=== PATIENT | male | born 1955 | race Asian ===

== ENCOUNTER 2023-03-26 08:04 | Inpatient (IN) | payer OTHER ==
[~2023-03-26] VITALS: Ht 162.6 cm; Wt 46.9 kg
[2023-03-26 09:33] LABS: BASOPHILS # (AUTO) 0.1 K/uL (0.0-0.2); BASOPHILS % (AUTO) 0.5 % (0.0-2.0); EOSINOPHILS % (AUTO) 0.1 % (0.0-6.0); HEMATOCRIT 41 % (39-51); HEMOGLOBIN 13.3 g/dL (13.5-17.5); LYMPHOCYTES # (AUTO) 0.9 K/uL (0.8-4.8); LYMPHOCYTES % (AUTO) 4.6 % (20.0-44.0); MEAN CORPUSCULAR HEMOGLOBIN 28 PG (26.0-33.0); MEAN CORPUSCULAR HGB CONC 32 g/dl (31.0-36.0); MEAN CORPUSCULAR VOLUME 88 fL (80-96); MONOCYTES # (AUTO) 0.8 K/uL (0.1-1.30); MONOCYTES % (AUTO) 4.1 % (2.0-12.0); NEUTROPHILS # (AUTO) 16.9 K/uL (1.8-8.9); NEUTROPHILS % (AUTO) 90.7 % (43.0-81.0); PLATELET COUNT (AUTO) 163 K/uL (150-450); RED BLOOD CELL COUNT(AUTO) 4.73 MIL/uL (4.5-6.0); RED CELL DISTRIBUTION WIDTH 16.7 % (11.5-15.0); WHITE BLOOD COUNT (AUTO) 18.6 K/uL (4.3-11.0)
[2023-03-26 09:36] LABS: CALCIUM, SERUM 8.1 mg/dL (8.5-10.1); CREATININE 1.2 mg/dL (0.6-1.3); POTASSIUM 5.7 mmol/L (3.5-5.1)
[2023-03-26 09:55] LABS: ALBUMIN 3.2 g/dL (3.4-5.0); BILIRUBIN,DIRECT 0.2 mg/dL (0.0-0.2); BILIRUBIN,TOTAL 0.7 mg/dL (0.2-1.0); TOTAL PROTEIN, SERUM 6.7 g/dL (6.4-8.2)
[2023-03-26] MEDS ORDERED: IV NS 0.9% 1,000 ML BAG IV ONE (10:30)
[2023-03-26] MEDS ORDERED: PIPERACILLIN /TAZOBACTAM 3.375 G in IV D5W 50 ML IV ONE (10:30)
[2023-03-26] MEDS ORDERED: ONDANSETRON HCL/PF 4 MG/2 ML VIAL IVP ONE (10:30)
[2023-03-26] MEDS ORDERED: ONDANSETRON HCL/PF 4 MG/2 ML VIAL ONE (10:32)
[2023-03-26 10:42] LABS: APPEARANCE,URINE CLOUDY (CLEAR); BILIRUBIN,URINE 1+ (NEGATIVE); BLOOD, URINE 3+ Ery/uL (NEGATIVE); COLOR,URINE AMBER (YELLOW); KETONES,URINE 1+ mg/dL (NEGATIVE); LEUKOCYTE ESTERASE ,URINE NEGATIVE (NEGATIVE); NITRITE, URINE POSITIVE (NEGATIVE); PH,URINE 6.5 (5.0-8.0); PROTEIN,URINE 3+ mg/dl (NEGATIVE); UGLUCOSE 3+ mg/dL (NEGATIVE)
[2023-03-26 10:44] LABS: ADD URINE CULTURE YES; BACTERIA,URINE Moderate /HPF (None Seen); SQUAMOUS EPITHELIAL CELL,UR Rare /HPF (None Seen); WBC,URINE 21-50 /HPF (0-3)
[2023-03-26] MEDS ORDERED: ACETAMINOPHEN 325 MG TABLET PO PRN (16:00)
[2023-03-26] MEDS ORDERED: DEXTROSE 50%-WATER 50 ML DISP.SYRIN IV PRN (16:00)
[2023-03-26] MEDS: IV NS 0.9% 1,000 ML IV SCH (16:29)
[2023-03-26 16:30] VITALS: BP 108/60; TEMP 97.4; O2SAT 96
[2023-03-26] MEDS: LEVOFLOXACIN 500 MG /D5W 100ML 500 MG in PREMIX 1 EA IV SCH (16:35)
[2023-03-26] MEDS: HYDROCODONE/APAP 5/325MG TABLET PO PRN (16:45)
[2023-03-26 17:00] LABS: CALCIUM, SERUM 7.2 mg/dL (8.5-10.1); CREATININE 1.3 mg/dL (0.6-1.3); POTASSIUM 6.1 mmol/L (3.5-5.1)
[2023-03-26] MEDS ORDERED: PANTOPRAZOLE 40 MG VIAL IV SCH (17:00)
[2023-03-26] MEDS: BLOOD SUGAR DIAGNOSTIC 1 EACH STRIP VI SCH ×2 (17:38→23:28)
[2023-03-26] MEDS: INSULIN REGULAR, HUMAN 100 UNIT/ML 3 ML VIAL SQ PRN (17:41)
[2023-03-26] MEDS: METRONIDAZOLE 500MG/ NS 100ML 500 MG in PREMIX 1 EA IV SCH ×2 (17:51→23:29)
[2023-03-26 19:00] VITALS: BP 117/61; TEMP 98; O2SAT 97
[2023-03-26 20:00] VITALS: BP 117/61; TEMP 98; O2SAT 97
[2023-03-27] MEDS: IV NS 0.9% 1,000 ML IV SCH ×2 (02:00→07:24)
[2023-03-27] MEDS: *INSULIN REGULAR(HUMULIN R)HUM 100 UNIT/ML VIAL SQ PRN (06:03)
[2023-03-27 06:35] LABS: BASOPHILS # (AUTO) 0.2 K/uL (0.0-0.2); BASOPHILS % (AUTO) 1.3 % (0.0-2.0); HEMATOCRIT 44 % (39-51); HEMOGLOBIN 14.1 g/dL (13.5-17.5); LYMPHOCYTES # (AUTO) 0.4 K/uL (0.8-4.8); LYMPHOCYTES % (AUTO) 2.6 % (20.0-44.0); MEAN CORPUSCULAR HEMOGLOBIN 29 PG (26.0-33.0); MEAN CORPUSCULAR HGB CONC 32 g/dl (31.0-36.0); MEAN CORPUSCULAR VOLUME 89 fL (80-96); MONOCYTES % (AUTO) 5.7 % (2.0-12.0); NEUTROPHILS # (AUTO) 15.2 K/uL (1.8-8.9); NEUTROPHILS % (AUTO) 90.4 % (43.0-81.0); PLATELET COUNT (AUTO) 147 K/uL (150-450); RED BLOOD CELL COUNT(AUTO) 4.95 MIL/uL (4.5-6.0); RED CELL DISTRIBUTION WIDTH 16.7 % (11.5-15.0); WHITE BLOOD COUNT (AUTO) 16.8 K/uL (4.3-11.0)
[2023-03-27] MEDS: BLOOD SUGAR DIAGNOSTIC 1 EACH STRIP VI SCH ×4 (07:34→22:00)
[2023-03-27 08:00] VITALS: BP 136/69; TEMP 97.5; O2SAT 96
[2023-03-27] MEDS: METRONIDAZOLE 500MG/ NS 100ML 500 MG in PREMIX 1 EA IV SCH ×3 (08:07→23:35)
[2023-03-27 08:57] LABS: ALBUMIN 2.7 g/dL (3.4-5.0); BILIRUBIN,TOTAL 0.4 mg/dL (0.2-1.0); CALCIUM, SERUM 6.9 mg/dL (8.5-10.1); CREATININE 1.9 mg/dL (0.6-1.3); POTASSIUM 6.1 mmol/L (3.5-5.1); TOTAL PROTEIN, SERUM 6.5 g/dL (6.4-8.2)
[2023-03-27] MEDS: PANTOPRAZOLE 40 MG TABLET.DR PO SCH ×2 (09:40→17:12)
[2023-03-27 10:01] LABS: OCCULT BLOOD STOOL NEGATIVE (NEGATIVE)
[2023-03-27] MEDS ORDERED: SODIUM POLYSTYRENE SULFONATE 15 G/60 ML BOTTLE PO ONE ×2 (12:00→12:30)
[2023-03-27] MEDS: ENSURE CLEAR 237 ML LIQUID (MIX BERRY) PO SCH ×2 (12:09→17:11)
[2023-03-27] MEDS: INSULIN REGULAR, HUMAN 100 UNIT/ML 3 ML VIAL SQ PRN ×2 (13:32→17:55)
[2023-03-27] MEDS ORDERED: ONDA8TAB65 SL (13:41)
[2023-03-27] MEDS ORDERED: POTA-10 PO (13:41)
[2023-03-27] MEDS ORDERED: TERA5CAP4 PO (13:41)
[2023-03-27] MEDS ORDERED: FURO-145 PO (13:41)
[2023-03-27] MEDS ORDERED: ATOR40TA PO (13:41)
[2023-03-27] MEDS ORDERED: LOSA100T31 PO (13:41)
[2023-03-27] MEDS ORDERED: ASPI-1169 PO (13:41)
[2023-03-27] MEDS ORDERED: METF-442 PO (13:41)
[2023-03-27] MEDS ORDERED: DICY10CA13 PO (13:41)
[2023-03-27] MEDS ORDERED: OMEP20CA15 PO (13:41)
[2023-03-27] MEDS ORDERED: DAPA10TA PO (13:41)
[2023-03-27] MEDS ORDERED: CARV25TA PO (13:41)
[2023-03-27] MEDS ORDERED: AMLO10TA4 PO (13:41)
[2023-03-27] MEDS ORDERED: GABA300C PO (13:41)
[2023-03-27 16:00] VITALS: BP 141/70; TEMP 97.8; O2SAT 96
[2023-03-27] MEDS: LEVOFLOXACIN 500 MG /D5W 100ML 500 MG in PREMIX 1 EA IV SCH (17:13)
[2023-03-27 20:00] VITALS: BP 111/64; TEMP 97.3; O2SAT 96
[2023-03-27] MEDS: IV NS 0.9% 1,000 ML IV PRN (23:21)
[2023-03-28 05:29] LABS: HBSAG SCREEN Negative (Negative); HEPATITIS A AB, IgM Negative (Negative); HEPATITIS B CORE AB, IgM Negative (Negative)
[2023-03-28] MEDS: ONDANSETRON HCL/PF 4 MG/2 ML VIAL IV PRN ×2 (06:05→19:31)
[2023-03-28 06:48] LABS: BASOPHILS # (AUTO) 0.1 K/uL (0.0-0.2); BASOPHILS % (AUTO) 0.4 % (0.0-2.0); HEMATOCRIT 39 % (39-51); HEMOGLOBIN 13.1 g/dL (13.5-17.5); LYMPHOCYTES # (AUTO) 0.5 K/uL (0.8-4.8); MEAN CORPUSCULAR HEMOGLOBIN 29 PG (26.0-33.0); MEAN CORPUSCULAR HGB CONC 33 g/dl (31.0-36.0); MEAN CORPUSCULAR VOLUME 87 fL (80-96); MONOCYTES % (AUTO) 7.7 % (2.0-12.0); NEUTROPHILS # (AUTO) 11.7 K/uL (1.8-8.9); NEUTROPHILS % (AUTO) 87.9 % (43.0-81.0); PLATELET COUNT (AUTO) 154 K/uL (150-450); RED BLOOD CELL COUNT(AUTO) 4.54 MIL/uL (4.5-6.0); RED CELL DISTRIBUTION WIDTH 16.4 % (11.5-15.0); WHITE BLOOD COUNT (AUTO) 13.3 K/uL (4.3-11.0)
[2023-03-28] MEDS: BLOOD SUGAR DIAGNOSTIC 1 EACH STRIP VI SCH ×4 (06:50→21:39)
[2023-03-28 07:14] LABS: ALBUMIN 2.3 g/dL (3.4-5.0); BILIRUBIN,TOTAL 0.4 mg/dL (0.2-1.0); CALCIUM, SERUM 6.6 mg/dL (8.5-10.1); CREATININE 2.9 mg/dL (0.6-1.3); POTASSIUM 4.7 mmol/L (3.5-5.1)
[2023-03-28 08:00] VITALS: BP 130/75; TEMP 97.4
[2023-03-28] MEDS: PANTOPRAZOLE 40 MG TABLET.DR PO SCH ×2 (08:31→16:27)
[2023-03-28] MEDS: ENSURE CLEAR 237 ML LIQUID (MIX BERRY) PO SCH ×3 (08:31→16:27)
[2023-03-28] MEDS: METRONIDAZOLE 500MG/ NS 100ML 500 MG in PREMIX 1 EA IV SCH ×3 (08:31→23:14)
[2023-03-28] MEDS: INSULIN REGULAR, HUMAN 100 UNIT/ML 3 ML VIAL SQ PRN ×2 (11:35→17:56)
[2023-03-28] MEDS: HYDROCODONE/APAP 5/325MG TABLET PO PRN (12:33)
[2023-03-28] MEDS: IV NS 0.9% 1,000 ML IV PRN (15:17)
[2023-03-28 16:00] VITALS: BP 131/69; TEMP 97.9; O2SAT 100
[2023-03-28] MEDS: LEVOFLOXACIN 500 MG /D5W 100ML 500 MG in PREMIX 1 EA IV SCH (16:22)
[2023-03-28 21:00] VITALS: BP 140/76; TEMP 97.6; O2SAT 97
[2023-03-29] MEDS: IV NS 0.9% 1,000 ML IV PRN ×2 (05:12→11:44)
[2023-03-29 06:11] LABS: BASOPHILS # (AUTO) 0.2 K/uL (0.0-0.2); BASOPHILS % (AUTO) 1.1 % (0.0-2.0); HEMATOCRIT 43 % (39-51); HEMOGLOBIN 13.7 g/dL (13.5-17.5); LYMPHOCYTES # (AUTO) 0.4 K/uL (0.8-4.8); LYMPHOCYTES % (AUTO) 2.5 % (20.0-44.0); MEAN CORPUSCULAR HEMOGLOBIN 28 PG (26.0-33.0); MEAN CORPUSCULAR HGB CONC 32 g/dl (31.0-36.0); MEAN CORPUSCULAR VOLUME 88 fL (80-96); MONOCYTES % (AUTO) 6.8 % (2.0-12.0); NEUTROPHILS # (AUTO) 13.4 K/uL (1.8-8.9); NEUTROPHILS % (AUTO) 89.6 % (43.0-81.0); PLATELET COUNT (AUTO) 162 K/uL (150-450); RED BLOOD CELL COUNT(AUTO) 4.83 MIL/uL (4.5-6.0); RED CELL DISTRIBUTION WIDTH 16.8 % (11.5-15.0)
[2023-03-29] MEDS: BLOOD SUGAR DIAGNOSTIC 1 EACH STRIP VI SCH ×4 (06:15→22:12)
[2023-03-29 06:35] LABS: CALCIUM, SERUM 6.4 mg/dL (8.5-10.1); CREATININE 4.2 mg/dL (0.6-1.3); POTASSIUM 4.9 mmol/L (3.5-5.1)
[2023-03-29 06:36] LABS: ALBUMIN 2.2 g/dL (3.4-5.0); BILIRUBIN,TOTAL 0.4 mg/dL (0.2-1.0); TOTAL PROTEIN, SERUM 6.1 g/dL (6.4-8.2)
[2023-03-29 07:00] VITALS: BP 135/75; TEMP 98.4; O2SAT 94
[2023-03-29] MEDS: ENSURE CLEAR 237 ML LIQUID (MIX BERRY) PO SCH ×3 (08:32→17:21)
[2023-03-29] MEDS: PANTOPRAZOLE 40 MG TABLET.DR PO SCH ×2 (08:33→17:18)
[2023-03-29] MEDS ORDERED: ASPIRIN 81 MG TAB.CHEW PO SCH (09:00)
[2023-03-29] MEDS ORDERED: D5W IV ONE (09:00)
[2023-03-29] MEDS ORDERED: ACETYLCYSTEINE IV ONE (09:00)
[2023-03-29] MEDS ORDERED: ACETYLCYSTEINE IV SCH ×2 (10:00→13:00)
[2023-03-29] MEDS ORDERED: D5W IV SCH ×2 (10:00→13:00)
[2023-03-29] MEDS ORDERED: NITROGLYCERIN 0.4 MG/TAB BOTTLE SL PRN (11:30)
[2023-03-29 12:01] LABS: ALBUMIN 1.9 g/dL (3.4-5.0); BILIRUBIN,DIRECT 0.1 mg/dL (0.0-0.2); BILIRUBIN,TOTAL 0.4 mg/dL (0.2-1.0); TOTAL PROTEIN, SERUM 5.9 g/dL (6.4-8.2)
[2023-03-29] MEDS: PIPERACILLIN /TAZOBACTAM 2.25 G in IV D5W 50 ML IV SCH ×3 (12:31→23:57)
[2023-03-29] MEDS ORDERED: DICYCLOMINE HCL 10 MG CAPSULE PO SCH (14:00)
[2023-03-29] MEDS ORDERED: ALPRAZOLAM 0.25 MG TABLET PO PRN (15:00)
[2023-03-29] MEDS ORDERED: FUROSEMIDE 40 MG/4 ML VIAL IV STA (15:16)
[2023-03-29 16:00] VITALS: BP 107/60; TEMP 98.5; O2SAT 95
[2023-03-29] MEDS ORDERED: LINAGLIPTIN 5 MG TABLET PO SCH (16:30)
[2023-03-29] MEDS ORDERED: METOPROLOL SUCCINATE 25 MG TAB.SR.24H PO SCH (17:00)
[2023-03-29] MEDS: METOPROLOL TARTRATE 25 MG TABLET PO SCH ×2 (17:18→21:48)
[2023-03-29] MEDS: INSULIN REGULAR, HUMAN 100 UNIT/ML 3 ML VIAL SQ PRN (18:16)
[2023-03-29 20:00] VITALS: BP 97/94; TEMP 98.3; O2SAT 94
[2023-03-29 20:12] LABS: APPEARANCE,URINE HAZY (CLEAR)
[2023-03-29 20:13] LABS: COLOR,URINE BROWN (YELLOW)
[2023-03-29 20:16] LABS: CREATININE, URINE 46.7 MG/DL (30.0-125.0)
[2023-03-29 20:17] LABS: RBC,URINE 51-80 /HPF (0-2)
[2023-03-29 20:18] LABS: BACTERIA,URINE RARE /HPF (None Seen); SQUAMOUS EPITHELIAL CELL,UR 0-2 /HPF (None Seen)
[2023-03-29] MEDS ORDERED: TAMSULOSIN 0.4 MG CAP.SR.24H PO SCH (22:00)
[2023-03-29] MEDS: *INSULIN REGULAR(HUMULIN R)HUM 100 UNIT/ML VIAL SQ PRN (22:13)
[2023-03-30] VITALS (35 sets, daily range): BP systolic 73–139; BP diastolic 48–107; TEMP 97.5–99; O2SAT 89–100
[2023-03-30] MEDS: FUROSEMIDE 40 MG/4 ML VIAL IV ONE ×2 (01:38→01:46)
[2023-03-30] MEDS ORDERED: ALBUMIN 25% 100 ML IV ONE (02:23)
[2023-03-30] MEDS ORDERED: FUROSEMIDE 20 MG/2 ML VIAL IV ONE (02:30)
[2023-03-30] MEDS ORDERED: ALBUMIN 25% 25 GM in PREMIX 1 EA IV ONE (02:30)
[2023-03-30] MEDS ORDERED: NOREPINEPHRINE 8MG/250ML RTU 250 ML IV ONE (03:45)
[2023-03-30] MEDS: NOREPINEPHRINE 8 MG in IV NS 0.9% 242 ML IV PRN ×2 (03:52→10:30)
[2023-03-30 04:28] LABS: ABG BASE EXCESS -21.5 mmol/L; ABG OXYGEN SATURATION 91.3 % (92.0-98.5); ABG PCO2 33.7 mmHg (35.0-45.0); ABG PH 7.019 (7.350-7.450); ABG TOTAL HEMOGLOBIN 12.9 G/dL (13.5-18.0); AaDO2 604.3 mmHg; COHb 0.1 % (0.5-1.5); MetHb 0.5 % (0.0-1.5); O2Hb 90.8 % (94.0-97.0); SITE, ABG Right Brachial; VENT MODE, BG NRB 15L 100%
[2023-03-30] MEDS ORDERED: SODIUM BICARBONATE SYR 50 MEQ/50 ML DISP.SYRIN IV ONE ×2 (05:00→09:00)
[2023-03-30] MEDS ORDERED: SODIUM BICARBONATE SYR 50 MEQ/50 ML DISP.SYRIN ONE ×3 (05:05→08:45)
[2023-03-30] MEDS: PIPERACILLIN /TAZOBACTAM 2.25 G in IV D5W 50 ML IV SCH ×3 (05:11→17:55)
[2023-03-30 05:12] LABS: BASOPHILS % (AUTO) 0.2 % (0.0-2.0); EOSINOPHILS % (AUTO) 0.1 % (0.0-6.0); HEMATOCRIT 38 % (39-51); HEMOGLOBIN 11.9 g/dL (13.5-17.5); LYMPHOCYTES # (AUTO) 0.3 K/uL (0.8-4.8); LYMPHOCYTES % (AUTO) 1.7 % (20.0-44.0); MEAN CORPUSCULAR HEMOGLOBIN 28 PG (26.0-33.0); MEAN CORPUSCULAR HGB CONC 32 g/dl (31.0-36.0); MEAN CORPUSCULAR VOLUME 89 fL (80-96); MONOCYTES # (AUTO) 1.2 K/uL (0.1-1.30); MONOCYTES % (AUTO) 5.6 % (2.0-12.0); NEUTROPHILS # (AUTO) 19.1 K/uL (1.8-8.9); NEUTROPHILS % (AUTO) 92.4 % (43.0-81.0); PLATELET COUNT (AUTO) 189 K/uL (150-450); RED BLOOD CELL COUNT(AUTO) 4.24 MIL/uL (4.5-6.0); RED CELL DISTRIBUTION WIDTH 17.1 % (11.5-15.0); WHITE BLOOD COUNT (AUTO) 20.6 K/uL (4.3-11.0)
[2023-03-30 05:39] LABS: ALBUMIN 2.5 g/dL (3.4-5.0); BILIRUBIN,DIRECT 0.1 mg/dL (0.0-0.2); BILIRUBIN,TOTAL 0.3 mg/dL (0.2-1.0); CALCIUM, SERUM 6.5 mg/dL (8.5-10.1); CREATININE 5.5 mg/dL (0.6-1.3); POTASSIUM 5.4 mmol/L (3.5-5.1); TOTAL PROTEIN, SERUM 6.2 g/dL (6.4-8.2)
[2023-03-30] MEDS: ENSURE CLEAR 237 ML LIQUID (MIX BERRY) PO SCH (08:00)
[2023-03-30] MEDS: BLOOD SUGAR DIAGNOSTIC 1 EACH STRIP VI SCH ×3 (08:13→16:38)
[2023-03-30 08:34] LABS: ABG BASE EXCESS -24.5 mmol/L; ABG OXYGEN SATURATION 80.1 % (92.0-98.5); ABG PCO2 56.3 mmHg (35.0-45.0); ABG PH 6.842 (7.350-7.450); ABG PO2 58.8 mmHg (75.0-100.0); ABG TOTAL HEMOGLOBIN 12.9 G/dL (13.5-18.0); AaDO2 597.9 mmHg; COHb 0.3 % (0.5-1.5); MetHb 0.4 % (0.0-1.5); O2Hb 79.5 % (94.0-97.0); SITE, ABG Left Radial; VENT MODE, BG HFNC + NRB
[2023-03-30] MEDS ORDERED: D5W IV SCH (09:00)
[2023-03-30] MEDS: FUROSEMIDE 20 MG/2 ML VIAL IV SCH ×3 (09:00→16:37)
[2023-03-30] MEDS ORDERED: ACETYLCYSTEINE IV SCH (09:00)
[2023-03-30] MEDS: PANTOPRAZOLE 40 MG/PACK PACK NG SCH ×2 (09:18→16:26)
[2023-03-30] MEDS ORDERED: ALPRAZOLAM 0.25 MG TABLET NG PRN (09:18)
[2023-03-30] MEDS ORDERED: DICYCLOMINE HCL 10 MG CAPSULE PO SCH (09:30)
[2023-03-30] MEDS ORDERED: PHARMACY TO CHANGE PO MEDS TO GT/NG XX PRN (09:30)
[2023-03-30] MEDS ORDERED: CALCIUM CHLORIDE 1,000 MG/10 ML DISP.SYRIN IV ONE (09:30)
[2023-03-30] MEDS: INSULIN GLARGINE, 100 UNIT/ML CARTRIDGE SQ SCH (11:00)
[2023-03-30] MEDS ORDERED: ETOMIDATE 2 MG/ML VIAL IV ONE (11:31)
[2023-03-30] MEDS ORDERED: ROCURONIUM BROMIDE 50 MG/5 ML IV ONE (11:31)
[2023-03-30] MEDS: PROPOFOL 100 ML IV PRN ×2 (11:35→22:16)
[2023-03-30] MEDS: ENSURE CLEAR 237 ML LIQUID (MIX BERRY) GT SCH ×2 (11:38→16:26)
[2023-03-30 14:04] LABS: ABG BASE EXCESS -8.8 mmol/L; ABG OXYGEN SATURATION 97.4 % (92.0-98.5); ABG PCO2 39.4 mmHg (35.0-45.0); ABG PH 7.267 (7.350-7.450); ABG PO2 104.5 mmHg (75.0-100.0); ABG TOTAL HEMOGLOBIN 13.3 G/dL (13.5-18.0); AaDO2 569.1 mmHg; COHb 0.4 % (0.5-1.5); MetHb 0.3 % (0.0-1.5); O2Hb 96.7 % (94.0-97.0); SITE, ABG Right Radial; VENT MODE, BG AC 24 450 100% +8
[2023-03-30] MEDS: PHENYLEPHRINE 50 MG in IV NS 0.9% 245 ML IV PRN (14:33)
[2023-03-30] MEDS: BLOOD SUGAR DIAGNOSTIC 1 EACH STRIP IN SCH (17:13)
[2023-03-30] MEDS ORDERED: DEXTROSE 50%-WATER 50 ML DISP.SYRIN IV PRN (17:30)
[2023-03-30] MEDS: METOPROLOL TARTRATE 25 MG TABLET GT SCH (21:00)
[2023-03-30] MEDS: HEPARIN SODIUM, PORCINE 5000 UNITS/1 ML VIAL SQ SCH (21:00)
[2023-03-30] MEDS: TAMSULOSIN 0.4 MG CAP.SR.24H GT SCH (22:00)
[2023-03-31] VITALS (45 sets, daily range): BP systolic 81–128; BP diastolic 48–79; TEMP 98.9–99.9; O2SAT 94–100
[2023-03-31] MEDS: PIPERACILLIN /TAZOBACTAM 2.25 G in IV D5W 50 ML IV SCH ×5 (00:28→23:24)
[2023-03-31] MEDS: PHENYLEPHRINE 50 MG in IV NS 0.9% 245 ML IV PRN ×3 (00:29→16:37)
[2023-03-31] MEDS: BLOOD SUGAR DIAGNOSTIC 1 EACH STRIP IN SCH ×5 (00:52→23:57)
[2023-03-31] MEDS: INSULIN REGULAR, HUMAN 100 UNIT/ML 3 ML VIAL SQ PRN ×2 (00:55→05:55)
[2023-03-31 05:25] LABS: BASOPHILS % (AUTO) 0.1 % (0.0-2.0); EOSINOPHILS % (AUTO) 0.1 % (0.0-6.0); HEMATOCRIT 32 % (39-51); HEMOGLOBIN 10.8 g/dL (13.5-17.5); LYMPHOCYTES # (AUTO) 0.6 K/uL (0.8-4.8); LYMPHOCYTES % (AUTO) 5.2 % (20.0-44.0); MEAN CORPUSCULAR HEMOGLOBIN 29 PG (26.0-33.0); MEAN CORPUSCULAR HGB CONC 34 g/dl (31.0-36.0); MEAN CORPUSCULAR VOLUME 85 fL (80-96); MONOCYTES # (AUTO) 1.1 K/uL (0.1-1.30); MONOCYTES % (AUTO) 8.6 % (2.0-12.0); NEUTROPHILS # (AUTO) 10.6 K/uL (1.8-8.9); PLATELET COUNT (AUTO) 113 K/uL (150-450); RED BLOOD CELL COUNT(AUTO) 3.75 MIL/uL (4.5-6.0); RED CELL DISTRIBUTION WIDTH 16.7 % (11.5-15.0); WHITE BLOOD COUNT (AUTO) 12.4 K/uL (4.3-11.0)
[2023-03-31 05:42] LABS: ALBUMIN 1.8 g/dL (3.4-5.0); BILIRUBIN,DIRECT 0.2 mg/dL (0.0-0.2); BILIRUBIN,TOTAL 0.4 mg/dL (0.2-1.0); CALCIUM, SERUM 6.5 mg/dL (8.5-10.1); CREATININE 4.8 mg/dL (0.6-1.3); MAGNESIUM 2.3 mg/dL (1.8-2.4); POTASSIUM 3.9 mmol/L (3.5-5.1); TOTAL PROTEIN, SERUM 5.1 g/dL (6.4-8.2)
[2023-03-31] MEDS ORDERED: ACETYLCYSTEINE IV SCH (06:30)
[2023-03-31] MEDS ORDERED: D5W IV SCH (06:30)
[2023-03-31] MEDS: PROPOFOL 100 ML IV PRN ×2 (06:33→16:44)
[2023-03-31] MEDS: ENSURE CLEAR 237 ML LIQUID (MIX BERRY) GT SCH ×3 (08:00→16:36)
[2023-03-31] MEDS: METOPROLOL TARTRATE 25 MG TABLET GT SCH ×2 (08:36→21:00)
[2023-03-31] MEDS: LINAGLIPTIN 5 MG TABLET GT SCH (08:37)
[2023-03-31] MEDS: FUROSEMIDE 20 MG/2 ML VIAL IV SCH (08:47)
[2023-03-31] MEDS: ASPIRIN 81 MG TAB.CHEW NG SCH (08:48)
[2023-03-31] MEDS: PANTOPRAZOLE 40 MG VIAL IV SCH ×2 (10:14→21:20)
[2023-03-31] MEDS: INSULIN GLARGINE, 100 UNIT/ML CARTRIDGE SQ SCH (10:19)
[2023-03-31] MEDS: HEPARIN SODIUM, PORCINE 5000 UNITS/1 ML VIAL SQ SCH ×2 (10:21→21:24)
[2023-03-31 11:47] LABS: ABG BASE EXCESS -9.9 mmol/L; ABG OXYGEN SATURATION 97.1 % (92.0-98.5); ABG PCO2 28.9 mmHg (35.0-45.0); ABG PH 7.326 (7.350-7.450); ABG PO2 107.6 mmHg (75.0-100.0); ABG TOTAL HEMOGLOBIN 11.2 G/dL (13.5-18.0); AaDO2 288.4 mmHg; COHb 0.3 % (0.5-1.5); MetHb 0.3 % (0.0-1.5); O2Hb 96.5 % (94.0-97.0); PEEP,BG 5 cm H2O; SITE, ABG Right Radial; VT, ABG 450 mL
[2023-03-31] MEDS ORDERED: ROCURONIUM BROMIDE 50 MG/5 ML IV ONE (15:37)
[2023-03-31] MEDS: TAMSULOSIN 0.4 MG CAP.SR.24H GT SCH (21:25)
[2023-04-01] VITALS (53 sets, daily range): BP systolic 102–128; BP diastolic 53–83; TEMP 97.6–100.2; O2SAT 91–99
[2023-04-01] MEDS: PROPOFOL 100 ML IV PRN ×2 (00:08→05:42)
[2023-04-01] MEDS: PHENYLEPHRINE 50 MG in IV NS 0.9% 245 ML IV PRN ×2 (01:34→14:02)
[2023-04-01] MEDS: PIPERACILLIN /TAZOBACTAM 2.25 G in IV D5W 50 ML IV SCH ×4 (05:10→23:07)
[2023-04-01 05:11] LABS: ALBUMIN 1.5 g/dL (3.4-5.0); BILIRUBIN,DIRECT 0.3 mg/dL (0.0-0.2); BILIRUBIN,TOTAL 0.5 mg/dL (0.2-1.0); CALCIUM, SERUM 7.9 mg/dL (8.5-10.1); CREATININE 3.8 mg/dL (0.6-1.3); POTASSIUM 3.1 mmol/L (3.5-5.1)
[2023-04-01 05:33] LABS: ABG BASE EXCESS -6.2 mmol/L; ABG PCO2 28.6 mmHg (35.0-45.0); ABG PH 7.402 (7.350-7.450); ABG PO2 81.8 mmHg (75.0-100.0); ABG TOTAL HEMOGLOBIN 10.9 G/dL (13.5-18.0); AaDO2 170.5 mmHg; COHb 0.3 % (0.5-1.5); MetHb 0.3 % (0.0-1.5); O2Hb 94.4 % (94.0-97.0); SITE, ABG Right Radial
[2023-04-01] MEDS: BLOOD SUGAR DIAGNOSTIC 1 EACH STRIP IN SCH ×4 (06:18→23:32)
[2023-04-01 08:00] LABS: BASOPHILS % (AUTO) 0.3 % (0.0-2.0); EOSINOPHILS # (AUTO) 0.1 K/uL (0.0-0.7); EOSINOPHILS % (AUTO) 1.1 % (0.0-6.0); HEMATOCRIT 29 % (39-51); HEMOGLOBIN 9.7 g/dL (13.5-17.5); LYMPHOCYTES % (AUTO) 8.7 % (20.0-44.0); MEAN CORPUSCULAR HEMOGLOBIN 28 PG (26.0-33.0); MEAN CORPUSCULAR HGB CONC 33 g/dl (31.0-36.0); MEAN CORPUSCULAR VOLUME 85 fL (80-96); MONOCYTES # (AUTO) 0.8 K/uL (0.1-1.30); MONOCYTES % (AUTO) 6.9 % (2.0-12.0); NEUTROPHILS # (AUTO) 9.4 K/uL (1.8-8.9); PLATELET COUNT (AUTO) 114 K/uL (150-450); RED BLOOD CELL COUNT(AUTO) 3.41 MIL/uL (4.5-6.0); RED CELL DISTRIBUTION WIDTH 17.1 % (11.5-15.0); WHITE BLOOD COUNT (AUTO) 11.3 K/uL (4.3-11.0)
[2023-04-01] MEDS: ENSURE CLEAR 237 ML LIQUID (MIX BERRY) GT SCH ×2 (08:00→11:47)
[2023-04-01] MEDS: POTASSIUM CL. PREMIX PERIPHER. 50 ML IV SCH ×4 (08:37→11:45)
[2023-04-01] MEDS: LINAGLIPTIN 5 MG TABLET GT SCH (09:00)
[2023-04-01] MEDS ORDERED: D5W IV SCH (09:00)
[2023-04-01] MEDS: ASPIRIN 81 MG TAB.CHEW NG SCH (09:00)
[2023-04-01] MEDS ORDERED: ACETYLCYSTEINE IV SCH (09:00)
[2023-04-01] MEDS: PANTOPRAZOLE 40 MG VIAL IV SCH ×2 (09:17→21:34)
[2023-04-01] MEDS ORDERED: DC PROPOFOL WHEN EXTUBATED XX PRN (11:00)
[2023-04-01 12:07] LABS: ABG BASE EXCESS -6.4 mmol/L; ABG OXYGEN SATURATION 95.4 % (92.0-98.5); ABG PCO2 27.7 mmHg (35.0-45.0); ABG PH 7.408 (7.350-7.450); ABG PO2 86.1 mmHg (75.0-100.0); ABG TOTAL HEMOGLOBIN 10.9 G/dL (13.5-18.0); AaDO2 167.2 mmHg; COHb 0.2 % (0.5-1.5); MetHb 0.1 % (0.0-1.5); O2Hb 95.1 % (94.0-97.0); PEEP,BG 5 cm H2O; SITE, ABG Right Radial; VENT MODE, BG SIMV; VT, ABG 450 mL
[2023-04-01] MEDS: TAMSULOSIN 0.4 MG CAP.SR.24H GT SCH (21:34)
[2023-04-02] VITALS (32 sets, daily range): BP systolic 106–134; BP diastolic 53–76; TEMP 97.6–99.7; O2SAT 87–100
[2023-04-02 02:51] LABS: ABG BASE EXCESS -6.2 mmol/L; ABG OXYGEN SATURATION 97.7 % (92.0-98.5); ABG PCO2 35.9 mmHg (35.0-45.0); ABG PH 7.339 (7.350-7.450); ABG PO2 126.7 mmHg (75.0-100.0); ABG TOTAL HEMOGLOBIN 11.2 G/dL (13.5-18.0); COHb 0.3 % (0.5-1.5); MetHb 0.3 % (0.0-1.5); O2Hb 97.1 % (94.0-97.0); SITE, ABG Right Radial
[2023-04-02 05:04] LABS: BASOPHILS % (AUTO) 0.1 % (0.0-2.0); EOSINOPHILS % (AUTO) 0.3 % (0.0-6.0); HEMATOCRIT 30 % (39-51); HEMOGLOBIN 9.9 g/dL (13.5-17.5); LYMPHOCYTES # (AUTO) 0.3 K/uL (0.8-4.8); LYMPHOCYTES % (AUTO) 2.8 % (20.0-44.0); MEAN CORPUSCULAR HEMOGLOBIN 28 PG (26.0-33.0); MEAN CORPUSCULAR HGB CONC 33 g/dl (31.0-36.0); MEAN CORPUSCULAR VOLUME 85 fL (80-96); MONOCYTES # (AUTO) 0.9 K/uL (0.1-1.30); MONOCYTES % (AUTO) 7.1 % (2.0-12.0); NEUTROPHILS # (AUTO) 10.8 K/uL (1.8-8.9); NEUTROPHILS % (AUTO) 89.7 % (43.0-81.0); PLATELET COUNT (AUTO) 134 K/uL (150-450); RED CELL DISTRIBUTION WIDTH 16.7 % (11.5-15.0)
[2023-04-02 05:09] LABS: CALCIUM, SERUM 8.2 mg/dL (8.5-10.1); CREATININE 3.6 mg/dL (0.6-1.3); POTASSIUM 3.3 mmol/L (3.5-5.1)
[2023-04-02] MEDS: PIPERACILLIN /TAZOBACTAM 2.25 G in IV D5W 50 ML IV SCH ×4 (05:10→23:12)
[2023-04-02] MEDS: BLOOD SUGAR DIAGNOSTIC 1 EACH STRIP IN SCH ×4 (06:00→23:20)
[2023-04-02] MEDS: LINAGLIPTIN 5 MG TABLET GT SCH (08:07)
[2023-04-02] MEDS: PANTOPRAZOLE 40 MG VIAL IV SCH ×2 (08:07→21:02)
[2023-04-02] MEDS: ASPIRIN 81 MG TAB.CHEW NG SCH (08:07)
[2023-04-02] MEDS ORDERED: FUROSEMIDE 40 MG/4 ML VIAL IV ONE (08:30)
[2023-04-02] MEDS ORDERED: POTASSIUM CHLORIDE 10 MEQ/50 ML PREMIXED IVPB FOR PERIPHERAL LINE IV ONE (08:30)
[2023-04-02] MEDS: TAMSULOSIN 0.4 MG CAP.SR.24H GT SCH (21:02)
[2023-04-03] VITALS (29 sets, daily range): BP systolic 101–143; BP diastolic 59–78; TEMP 97.4–99.3; O2SAT 86–100
[2023-04-03 04:02] LABS: BASOPHILS % (AUTO) 0.1 % (0.0-2.0); EOSINOPHILS % (AUTO) 0.1 % (0.0-6.0); HEMATOCRIT 32 % (39-51); HEMOGLOBIN 10.6 g/dL (13.5-17.5); LYMPHOCYTES # (AUTO) 0.3 K/uL (0.8-4.8); LYMPHOCYTES % (AUTO) 1.5 % (20.0-44.0); MEAN CORPUSCULAR HEMOGLOBIN 29 PG (26.0-33.0); MEAN CORPUSCULAR HGB CONC 33 g/dl (31.0-36.0); MEAN CORPUSCULAR VOLUME 87 fL (80-96); MONOCYTES # (AUTO) 1.2 K/uL (0.1-1.30); MONOCYTES % (AUTO) 6.4 % (2.0-12.0); NEUTROPHILS # (AUTO) 17.2 K/uL (1.8-8.9); NEUTROPHILS % (AUTO) 91.9 % (43.0-81.0); PLATELET COUNT (AUTO) 157 K/uL (150-450); RED BLOOD CELL COUNT(AUTO) 3.69 MIL/uL (4.5-6.0); RED CELL DISTRIBUTION WIDTH 16.5 % (11.5-15.0); WHITE BLOOD COUNT (AUTO) 18.7 K/uL (4.3-11.0)
[2023-04-03 04:19] LABS: ALBUMIN 1.8 g/dL (3.4-5.0); BILIRUBIN,TOTAL 0.8 mg/dL (0.2-1.0); CALCIUM, SERUM 8.7 mg/dL (8.5-10.1); CREATININE 3.6 mg/dL (0.6-1.3); MAGNESIUM 2.1 mg/dL (1.8-2.4); POTASSIUM 3.7 mmol/L (3.5-5.1); TOTAL PROTEIN, SERUM 5.5 g/dL (6.4-8.2)
[2023-04-03] MEDS: PIPERACILLIN /TAZOBACTAM 2.25 G in IV D5W 50 ML IV SCH ×4 (05:12→23:25)
[2023-04-03] MEDS: BLOOD SUGAR DIAGNOSTIC 1 EACH STRIP IN SCH ×4 (05:20→23:34)
[2023-04-03] MEDS: INSULIN REGULAR, HUMAN 100 UNIT/ML 3 ML VIAL SQ PRN ×3 (05:23→23:35)
[2023-04-03] MEDS: PANTOPRAZOLE 40 MG VIAL IV SCH ×2 (08:56→21:10)
[2023-04-03] MEDS: ASPIRIN 81 MG TAB.CHEW NG SCH (08:58)
[2023-04-03] MEDS ORDERED: VANCOMYCIN 1 GM in IV D5W 250 ML IV ONE ×2 (13:00→18:00)
[2023-04-03 17:38] LABS: ABG BASE EXCESS -6.5 mmol/L; ABG OXYGEN SATURATION 87.3 % (92.0-98.5); ABG PCO2 35.7 mmHg (35.0-45.0); ABG PH 7.335 (7.350-7.450); ABG PO2 54.4 mmHg (75.0-100.0); ABG TOTAL HEMOGLOBIN 11.5 G/dL (13.5-18.0); AaDO2 261.9 mmHg; COHb 0.2 % (0.5-1.5); MetHb 0.3 % (0.0-1.5); O2Hb 86.9 % (94.0-97.0); SITE, ABG Right Radial; VENT MODE, BG 50% fio2 high flow
[2023-04-03] MEDS: TAMSULOSIN 0.4 MG CAP.SR.24H GT SCH (21:15)
[2023-04-04] VITALS (32 sets, daily range): BP systolic 89–134; BP diastolic 53–86; TEMP 98.3–100.2; O2SAT 80–100
[2023-04-04 03:14] LABS: BASOPHILS % (AUTO) 0.1 % (0.0-2.0); HEMATOCRIT 32 % (39-51); HEMOGLOBIN 10.5 g/dL (13.5-17.5); LYMPHOCYTES # (AUTO) 0.3 K/uL (0.8-4.8); LYMPHOCYTES % (AUTO) 1.1 % (20.0-44.0); MEAN CORPUSCULAR HEMOGLOBIN 28 PG (26.0-33.0); MEAN CORPUSCULAR HGB CONC 33 g/dl (31.0-36.0); MEAN CORPUSCULAR VOLUME 86 fL (80-96); MONOCYTES # (AUTO) 1.3 K/uL (0.1-1.30); MONOCYTES % (AUTO) 4.7 % (2.0-12.0); NEUTROPHILS % (AUTO) 94.1 % (43.0-81.0); PLATELET COUNT (AUTO) 182 K/uL (150-450); RED BLOOD CELL COUNT(AUTO) 3.72 MIL/uL (4.5-6.0); RED CELL DISTRIBUTION WIDTH 16.5 % (11.5-15.0); WHITE BLOOD COUNT (AUTO) 26.6 K/uL (4.3-11.0)
[2023-04-04] MEDS ORDERED: NOREPINEPHRINE 8 MG in IV NS 0.9% 242 ML IV PRN (03:30)
[2023-04-04] MEDS ORDERED: PROPOFOL 100 ML IV PRN ×2 (03:30→06:30)
[2023-04-04 03:40] LABS: ALBUMIN 1.9 g/dL (3.4-5.0); BILIRUBIN,TOTAL 0.5 mg/dL (0.2-1.0); CALCIUM, SERUM 9.1 mg/dL (8.5-10.1); CREATININE 3.5 mg/dL (0.6-1.3); MAGNESIUM 2.2 mg/dL (1.8-2.4); POTASSIUM 3.4 mmol/L (3.5-5.1); TOTAL PROTEIN, SERUM 5.8 g/dL (6.4-8.2)
[2023-04-04 03:44] LABS: LYMPHOCYTES % (MANUAL) 2 % (16-48); MONOCYTES % (MANUAL) 3 % (0-11.0); NEUTROPHILS % (MANUAL) 95 (42-76); PLATELET ESTIMATE ADEQUATE
[2023-04-04 04:26] LABS: ABG OXYGEN SATURATION 87.3 % (92.0-98.5); ABG PCO2 53.8 mmHg (35.0-45.0); ABG PH 7.227 (7.350-7.450); ABG PO2 61.9 mmHg (75.0-100.0); AaDO2 597.3 mmHg; COHb 0.4 % (0.5-1.5); MetHb 0.1 % (0.0-1.5); O2Hb 86.9 % (94.0-97.0); PEEP,BG 8 cm H2O; SITE, ABG Right Radial
[2023-04-04] MEDS: PIPERACILLIN /TAZOBACTAM 2.25 G in IV D5W 50 ML IV SCH ×4 (05:25→23:43)
[2023-04-04] MEDS: BLOOD SUGAR DIAGNOSTIC 1 EACH STRIP IN SCH ×4 (05:43→23:47)
[2023-04-04] MEDS ORDERED: SODIUM BICARBONATE SYR 50 MEQ/50 ML DISP.SYRIN IV ONE (06:45)
[2023-04-04] MEDS ORDERED: EPINEPHRINE (1:10,000) SYRINGE 1 MG/10 ML DISP.SYRIN IVP ONE (06:45)
[2023-04-04] MEDS ORDERED: ETOMIDATE 2 MG/ML VIAL IV ONE (06:46)
[2023-04-04] MEDS ORDERED: ROCURONIUM BROMIDE 50 MG/5 ML IV ONE (06:46)
[2023-04-04] MEDS ORDERED: POTASSIUM CHLORIDE 10 MEQ/50 ML PREMIXED IVPB FOR PERIPHERAL LINE IV ONE (08:30)
[2023-04-04] MEDS ORDERED: POTASSIUM CL. PREMIX PERIPHER. 50 ML IV SCH (08:30)
[2023-04-04] MEDS ORDERED: MICAFUNGIN SODIUM 100 MG in IV NS 0.9% 100 ML IV SCH (08:30)
[2023-04-04] MEDS: ASPIRIN 81 MG TAB.CHEW NG SCH (08:48)
[2023-04-04] MEDS: PANTOPRAZOLE 40 MG/PACK PACK GT SCH ×2 (08:48→22:15)
[2023-04-04] MEDS ORDERED: FLUCONAZOLE IN NS,PREMIX 200 MG in PREMIX 1 EA IV SCH ×2 (09:00)
[2023-04-04] MEDS ORDERED: FLUCONAZOLE IN NS,PREMIX 100 MG in PREMIX 1 EA IV SCH ×2 (09:00)
[2023-04-04] MEDS ORDERED: POTASSIUM CHLORIDE 20 MEQ POWDER PACKET GT ONE (09:00)
[2023-04-04] MEDS: FUROSEMIDE 40 MG/4 ML VIAL IV SCH (09:07)
[2023-04-04] MEDS: DIFLUCAN -NS 100 MG in PREMIX IV SCH (09:08)
[2023-04-04 10:37] LABS: ABG BASE EXCESS -0.9 mmol/L; ABG OXYGEN SATURATION 94.2 % (92.0-98.5); ABG PCO2 38.8 mmHg (35.0-45.0); ABG PH 7.403 (7.350-7.450); ABG PO2 74.5 mmHg (75.0-100.0); ABG TOTAL HEMOGLOBIN 11.6 G/dL (13.5-18.0); COHb 0.3 % (0.5-1.5); MetHb 0.3 % (0.0-1.5); O2Hb 93.6 % (94.0-97.0); PEEP,BG 8 cm H2O; SITE, ABG Right Radial; VENT MODE, BG ACVC; VT, ABG 450 mL
[2023-04-04] MEDS: PROPOFOL 100 ML IV PRN (15:30)
[2023-04-04] MEDS: VANCOMYCIN 500 MG in IV D5W 100 ML IV PRN (15:49)
[2023-04-04] MEDS: TAMSULOSIN 0.4 MG CAP.SR.24H GT SCH (22:15)
[2023-04-04] MEDS: HEPARIN SODIUM, PORCINE 5000 UNITS/1 ML VIAL SQ SCH (22:17)
[2023-04-04] MEDS: INSULIN REGULAR, HUMAN 100 UNIT/ML 3 ML VIAL SQ PRN (23:50)
[2023-04-05] VITALS (42 sets, daily range): BP systolic 92–133; BP diastolic 50–85; TEMP 98.2–98.6; O2SAT 100
[2023-04-05 03:59] LABS: BASOPHILS % (AUTO) 0.1 % (0.0-2.0); EOSINOPHILS # (AUTO) 0.1 K/uL (0.0-0.7); EOSINOPHILS % (AUTO) 0.3 % (0.0-6.0); HEMATOCRIT 29 % (39-51); HEMOGLOBIN 9.5 g/dL (13.5-17.5); LYMPHOCYTES # (AUTO) 0.8 K/uL (0.8-4.8); LYMPHOCYTES % (AUTO) 3.4 % (20.0-44.0); MEAN CORPUSCULAR HEMOGLOBIN 28 PG (26.0-33.0); MEAN CORPUSCULAR HGB CONC 33 g/dl (31.0-36.0); MEAN CORPUSCULAR VOLUME 86 fL (80-96); MONOCYTES # (AUTO) 1.1 K/uL (0.1-1.30); MONOCYTES % (AUTO) 4.8 % (2.0-12.0); NEUTROPHILS # (AUTO) 20.9 K/uL (1.8-8.9); NEUTROPHILS % (AUTO) 91.4 % (43.0-81.0); PLATELET COUNT (AUTO) 141 K/uL (150-450); RED BLOOD CELL COUNT(AUTO) 3.41 MIL/uL (4.5-6.0); RED CELL DISTRIBUTION WIDTH 16.4 % (11.5-15.0); WHITE BLOOD COUNT (AUTO) 22.9 K/uL (4.3-11.0)
[2023-04-05 04:18] LABS: ALBUMIN 1.7 g/dL (3.4-5.0); BILIRUBIN,TOTAL 0.6 mg/dL (0.2-1.0); CALCIUM, SERUM 8.9 mg/dL (8.5-10.1); CREATININE 3.4 mg/dL (0.6-1.3); TOTAL PROTEIN, SERUM 5.4 g/dL (6.4-8.2)
[2023-04-05] MEDS: BLOOD SUGAR DIAGNOSTIC 1 EACH STRIP IN SCH ×3 (05:41→17:15)
[2023-04-05] MEDS: INSULIN REGULAR, HUMAN 100 UNIT/ML 3 ML VIAL SQ PRN (05:41)
[2023-04-05] MEDS: PIPERACILLIN /TAZOBACTAM 2.25 G in IV D5W 50 ML IV SCH ×3 (05:42→17:08)
[2023-04-05 07:48] LABS: ABG BASE EXCESS -1.8 mmol/L; ABG OXYGEN SATURATION 97.6 % (92.0-98.5); ABG PCO2 37.2 mmHg (35.0-45.0); ABG PH 7.402 (7.350-7.450); ABG PO2 117.7 mmHg (75.0-100.0); ABG TOTAL HEMOGLOBIN 10.7 G/dL (13.5-18.0); COHb 0.3 % (0.5-1.5); MetHb 0.3 % (0.0-1.5); PEEP,BG 8 cm H2O; SITE, ABG Right Radial; VT, ABG 450 mL
[2023-04-05] MEDS: PANTOPRAZOLE 40 MG/PACK PACK GT SCH ×2 (08:44→20:45)
[2023-04-05] MEDS: ASPIRIN 81 MG TAB.CHEW NG SCH (08:44)
[2023-04-05] MEDS: ALBUMIN 25% 25 GM in PREMIX 1 EA IV PRN (09:13)
[2023-04-05] MEDS ORDERED: POTASSIUM CHLORIDE 10 MEQ/50 ML PREMIXED IVPB FOR PERIPHERAL LINE IV ONE (09:30)
[2023-04-05] MEDS: PROPOFOL 100 ML IV PRN ×3 (10:11→21:55)
[2023-04-05] MEDS: HEPARIN SODIUM, PORCINE 5000 UNITS/1 ML VIAL SQ SCH ×2 (11:26→20:51)
[2023-04-05] MEDS: CLOPIDOGREL BISULFATE 75 MG TABLET NG SCH (11:28)
[2023-04-05] MEDS: FUROSEMIDE 40 MG/4 ML VIAL IV SCH (11:28)
[2023-04-05] MEDS: DIFLUCAN -NS 100 MG in PREMIX IV SCH (11:32)
[2023-04-05] MEDS ORDERED: NEPRO 1,000 ML BOTTLE GT PRN (12:00)
[2023-04-05] MEDS: TAMSULOSIN 0.4 MG CAP.SR.24H GT SCH (21:20)
[2023-04-06] VITALS (25 sets, daily range): BP systolic 94–125; BP diastolic 56–66; TEMP 98.2–99.4; O2SAT 98–100
[2023-04-06] MEDS: PIPERACILLIN /TAZOBACTAM 2.25 G in IV D5W 50 ML IV SCH ×5 (00:27→23:45)
[2023-04-06] MEDS: BLOOD SUGAR DIAGNOSTIC 1 EACH STRIP IN SCH ×4 (00:58→17:37)
[2023-04-06] MEDS: INSULIN REGULAR, HUMAN 100 UNIT/ML 3 ML VIAL SQ PRN ×4 (01:02→17:45)
[2023-04-06 05:07] LABS: BASOPHILS % (AUTO) 0.2 % (0.0-2.0); EOSINOPHILS # (AUTO) 0.3 K/uL (0.0-0.7); EOSINOPHILS % (AUTO) 1.5 % (0.0-6.0); HEMATOCRIT 29 % (39-51); HEMOGLOBIN 9.5 g/dL (13.5-17.5); LYMPHOCYTES # (AUTO) 0.8 K/uL (0.8-4.8); LYMPHOCYTES % (AUTO) 4.3 % (20.0-44.0); MEAN CORPUSCULAR HEMOGLOBIN 29 PG (26.0-33.0); MEAN CORPUSCULAR HGB CONC 33 g/dl (31.0-36.0); MEAN CORPUSCULAR VOLUME 87 fL (80-96); MONOCYTES # (AUTO) 0.6 K/uL (0.1-1.30); MONOCYTES % (AUTO) 3.3 % (2.0-12.0); NEUTROPHILS # (AUTO) 15.9 K/uL (1.8-8.9); NEUTROPHILS % (AUTO) 90.7 % (43.0-81.0); PLATELET COUNT (AUTO) 140 K/uL (150-450); RED BLOOD CELL COUNT(AUTO) 3.32 MIL/uL (4.5-6.0); RED CELL DISTRIBUTION WIDTH 16.7 % (11.5-15.0); WHITE BLOOD COUNT (AUTO) 17.5 K/uL (4.3-11.0)
[2023-04-06 05:18] LABS: CALCIUM, SERUM 9.9 mg/dL (8.5-10.1); CREATININE 3.4 mg/dL (0.6-1.3); POTASSIUM 3.1 mmol/L (3.5-5.1)
[2023-04-06 05:25] LABS: BILIRUBIN,TOTAL 0.4 mg/dL (0.2-1.0); TOTAL PROTEIN, SERUM 5.5 g/dL (6.4-8.2)
[2023-04-06] MEDS: IV NS 0.9% 250 ML IV PRN (07:23)
[2023-04-06 08:01] LABS: ABG BASE EXCESS -7.3 mmol/L; ABG OXYGEN SATURATION 96.8 % (92.0-98.5); ABG PCO2 31.2 mmHg (35.0-45.0); ABG PH 7.358 (7.350-7.450); ABG PO2 100.6 mmHg (75.0-100.0); ABG TOTAL HEMOGLOBIN 10.4 G/dL (13.5-18.0); AaDO2 112.7 mmHg; COHb 0.3 % (0.5-1.5); MetHb 0.2 % (0.0-1.5); O2Hb 96.3 % (94.0-97.0); PEEP,BG 5 cm H2O; SITE, ABG Right Radial; VT, ABG 450 mL
[2023-04-06] MEDS: FUROSEMIDE 40 MG/4 ML VIAL IV SCH (08:07)
[2023-04-06] MEDS: CLOPIDOGREL BISULFATE 75 MG TABLET NG SCH (08:07)
[2023-04-06] MEDS: PANTOPRAZOLE 40 MG/PACK PACK GT SCH ×2 (08:07→21:57)
[2023-04-06] MEDS: ASPIRIN 81 MG TAB.CHEW NG SCH (08:07)
[2023-04-06] MEDS: HEPARIN SODIUM, PORCINE 5000 UNITS/1 ML VIAL SQ SCH ×2 (08:08→21:58)
[2023-04-06] MEDS: PROPOFOL 100 ML IV PRN ×3 (08:14→23:46)
[2023-04-06] MEDS: DIFLUCAN -NS 100 MG in PREMIX IV SCH (08:57)
[2023-04-06] MEDS ORDERED: POTASSIUM CHLORIDE 10 MEQ/50 ML PREMIXED IVPB FOR PERIPHERAL LINE IV ONE (10:30)
[2023-04-06] MEDS: ALBUMIN 25% 25 GM in PREMIX 1 EA IV PRN (10:38)
[2023-04-06] MEDS ORDERED: POTASSIUM CHLORIDE 20 MEQ TAB.PRT.SR PO ONE (11:00)
[2023-04-06] MEDS ORDERED: VANCOMYCIN 1 GM in IV D5W 250ml IV ONE (18:00)
[2023-04-06] MEDS: TAMSULOSIN 0.4 MG CAP.SR.24H GT SCH (21:57)
[2023-04-07] VITALS (24 sets, daily range): BP systolic 106–131; BP diastolic 51–68; TEMP 98.1–100.4; O2SAT 99–100
[2023-04-07] MEDS: BLOOD SUGAR DIAGNOSTIC 1 EACH STRIP IN SCH ×4 (00:51→18:13)
[2023-04-07] MEDS: IV NS 0.9% 250 ML IV PRN ×2 (00:53→20:28)
[2023-04-07] MEDS: INSULIN REGULAR, HUMAN 100 UNIT/ML 3 ML VIAL SQ PRN ×3 (00:54→18:27)
[2023-04-07] MEDS: NEPRO 1,000 ML BOTTLE GT PRN (04:57)
[2023-04-07 05:13] LABS: BASOPHILS % (AUTO) 0.2 % (0.0-2.0); EOSINOPHILS # (AUTO) 0.2 K/uL (0.0-0.7); EOSINOPHILS % (AUTO) 1.3 % (0.0-6.0); HEMATOCRIT 27 % (39-51); HEMOGLOBIN 8.9 g/dL (13.5-17.5); LYMPHOCYTES # (AUTO) 0.8 K/uL (0.8-4.8); LYMPHOCYTES % (AUTO) 5.1 % (20.0-44.0); MEAN CORPUSCULAR HEMOGLOBIN 29 PG (26.0-33.0); MEAN CORPUSCULAR HGB CONC 33 g/dl (31.0-36.0); MEAN CORPUSCULAR VOLUME 86 fL (80-96); MONOCYTES # (AUTO) 0.7 K/uL (0.1-1.30); MONOCYTES % (AUTO) 4.5 % (2.0-12.0); NEUTROPHILS # (AUTO) 14.3 K/uL (1.8-8.9); NEUTROPHILS % (AUTO) 88.9 % (43.0-81.0); PLATELET COUNT (AUTO) 142 K/uL (150-450); RED BLOOD CELL COUNT(AUTO) 3.12 MIL/uL (4.5-6.0); RED CELL DISTRIBUTION WIDTH 16.7 % (11.5-15.0); WHITE BLOOD COUNT (AUTO) 16.1 K/uL (4.3-11.0)
[2023-04-07 05:26] LABS: CALCIUM, SERUM 9.5 mg/dL (8.5-10.1); CREATININE 3.4 mg/dL (0.6-1.3); MAGNESIUM 2.2 mg/dL (1.8-2.4); POTASSIUM 3.2 mmol/L (3.5-5.1)
[2023-04-07] MEDS: PIPERACILLIN /TAZOBACTAM 2.25 G in IV D5W 50 ML IV SCH ×4 (05:28→23:47)
[2023-04-07] MEDS: PROPOFOL 100 ML IV PRN ×3 (05:28→20:26)
[2023-04-07] MEDS ORDERED: POTASSIUM CHLORIDE 20 MEQ POWDER PACKET NG ONE (07:30)
[2023-04-07] MEDS ORDERED: POTASSIUM CHLORIDE 10 MEQ/50 ML PREMIXED IVPB FOR PERIPHERAL LINE IV ONE (08:30)
[2023-04-07] MEDS: PANTOPRAZOLE 40 MG/PACK PACK GT SCH ×2 (09:00→21:48)
[2023-04-07] MEDS: ASPIRIN 81 MG TAB.CHEW NG SCH (09:00)
[2023-04-07] MEDS: CLOPIDOGREL BISULFATE 75 MG TABLET NG SCH (09:00)
[2023-04-07] MEDS: HEPARIN SODIUM, PORCINE 5000 UNITS/1 ML VIAL SQ SCH ×2 (09:01→21:49)
[2023-04-07] MEDS: DIFLUCAN -NS 100 MG in PREMIX IV SCH (11:01)
[2023-04-07] MEDS: TAMSULOSIN 0.4 MG CAP.SR.24H GT SCH (21:48)
[2023-04-08] VITALS (24 sets, daily range): BP systolic 91–137; BP diastolic 55–78; TEMP 98.8–99.7; O2SAT 99–100
[2023-04-08] MEDS: BLOOD SUGAR DIAGNOSTIC 1 EACH STRIP IN SCH ×4 (00:24→17:14)
[2023-04-08] MEDS: INSULIN REGULAR, HUMAN 100 UNIT/ML 3 ML VIAL SQ PRN ×3 (00:25→11:29)
[2023-04-08] MEDS: PROPOFOL 100 ML IV PRN (02:29)
[2023-04-08 04:23] LABS: BASOPHILS # (AUTO) 0.1 K/uL (0.0-0.2); BASOPHILS % (AUTO) 0.3 % (0.0-2.0); EOSINOPHILS # (AUTO) 0.2 K/uL (0.0-0.7); EOSINOPHILS % (AUTO) 1.1 % (0.0-6.0); HEMATOCRIT 27 % (39-51); LYMPHOCYTES # (AUTO) 1.1 K/uL (0.8-4.8); LYMPHOCYTES % (AUTO) 5.4 % (20.0-44.0); MEAN CORPUSCULAR HEMOGLOBIN 29 PG (26.0-33.0); MEAN CORPUSCULAR HGB CONC 33 g/dl (31.0-36.0); MEAN CORPUSCULAR VOLUME 86 fL (80-96); NEUTROPHILS # (AUTO) 17.2 K/uL (1.8-8.9); NEUTROPHILS % (AUTO) 88.2 % (43.0-81.0); PLATELET COUNT (AUTO) 198 K/uL (150-450); RED BLOOD CELL COUNT(AUTO) 3.16 MIL/uL (4.5-6.0); RED CELL DISTRIBUTION WIDTH 16.7 % (11.5-15.0); WHITE BLOOD COUNT (AUTO) 19.6 K/uL (4.3-11.0)
[2023-04-08] MEDS: PIPERACILLIN /TAZOBACTAM 2.25 G in IV D5W 50 ML IV SCH ×4 (05:03→23:03)
[2023-04-08 05:10] LABS: ALBUMIN 1.8 g/dL (3.4-5.0); BILIRUBIN,TOTAL 0.3 mg/dL (0.2-1.0); CALCIUM, SERUM 9.3 mg/dL (8.5-10.1); CREATININE 3.5 mg/dL (0.6-1.3); POTASSIUM 3.8 mmol/L (3.5-5.1); TOTAL PROTEIN, SERUM 5.5 g/dL (6.4-8.2)
[2023-04-08] MEDS: NEPRO 1,000 ML BOTTLE GT PRN (07:25)
[2023-04-08 08:14] LABS: ABG BASE EXCESS -3.7 mmol/L; ABG OXYGEN SATURATION 98.2 % (92.0-98.5); ABG PCO2 32.4 mmHg (35.0-45.0); ABG PH 7.414 (7.350-7.450); ABG PO2 136.2 mmHg (75.0-100.0); ABG TOTAL HEMOGLOBIN 9.2 G/dL (13.5-18.0); AaDO2 75.7 mmHg; COHb 0.3 % (0.5-1.5); MetHb 0.1 % (0.0-1.5); O2Hb 97.8 % (94.0-97.0); SITE, ABG Right Radial
[2023-04-08] MEDS: CLOPIDOGREL BISULFATE 75 MG TABLET NG SCH (08:34)
[2023-04-08] MEDS: ASPIRIN 81 MG TAB.CHEW NG SCH (08:34)
[2023-04-08] MEDS: PANTOPRAZOLE 40 MG/PACK PACK GT SCH ×2 (08:34→21:23)
[2023-04-08] MEDS: HEPARIN SODIUM, PORCINE 5000 UNITS/1 ML VIAL SQ SCH ×2 (08:35→21:24)
[2023-04-08] MEDS: DIFLUCAN -NS 100 MG in PREMIX IV SCH (09:35)
[2023-04-08 12:39] LABS: ABG BASE EXCESS -3.9 mmol/L; ABG OXYGEN SATURATION 98.1 % (92.0-98.5); ABG PH 7.413 (7.350-7.450); ABG PO2 137.4 mmHg (75.0-100.0); ABG TOTAL HEMOGLOBIN 9.7 G/dL (13.5-18.0); AaDO2 82.2 mmHg; COHb 0.3 % (0.5-1.5); MetHb 0.1 % (0.0-1.5); O2Hb 97.7 % (94.0-97.0); SITE, ABG Right Brachial; VENT MODE, BG CPAP 5 / PS 15
[2023-04-08] MEDS: METRONIDAZOLE 500MG/ NS 100ML 500 MG in PREMIX 1 EA IV SCH ×3 (12:59→23:03)
[2023-04-08] MEDS: IV NS 0.9% 250 ML IV PRN ×2 (18:31→23:00)
[2023-04-08] MEDS: TAMSULOSIN 0.4 MG CAP.SR.24H GT SCH (21:23)
[2023-04-09] VITALS (24 sets, daily range): BP systolic 112–143; BP diastolic 57–78; TEMP 98.2–99.7; O2SAT 96–100
[2023-04-09] MEDS: INSULIN REGULAR, HUMAN 100 UNIT/ML 3 ML VIAL SQ PRN ×5 (00:41→23:36)
[2023-04-09] MEDS: BLOOD SUGAR DIAGNOSTIC 1 EACH STRIP IN SCH ×5 (00:50→23:35)
[2023-04-09 05:07] LABS: BASOPHILS % (AUTO) 0.2 % (0.0-2.0); EOSINOPHILS # (AUTO) 0.2 K/uL (0.0-0.7); HEMATOCRIT 25 % (39-51); HEMOGLOBIN 8.3 g/dL (13.5-17.5); LYMPHOCYTES % (AUTO) 5.2 % (20.0-44.0); MEAN CORPUSCULAR HEMOGLOBIN 29 PG (26.0-33.0); MEAN CORPUSCULAR HGB CONC 34 g/dl (31.0-36.0); MEAN CORPUSCULAR VOLUME 85 fL (80-96); MONOCYTES % (AUTO) 5.3 % (2.0-12.0); NEUTROPHILS # (AUTO) 16.5 K/uL (1.8-8.9); NEUTROPHILS % (AUTO) 88.3 % (43.0-81.0); PLATELET COUNT (AUTO) 234 K/uL (150-450); RED BLOOD CELL COUNT(AUTO) 2.91 MIL/uL (4.5-6.0); RED CELL DISTRIBUTION WIDTH 17.1 % (11.5-15.0); WHITE BLOOD COUNT (AUTO) 18.6 K/uL (4.3-11.0)
[2023-04-09 05:13] LABS: ALBUMIN 1.6 g/dL (3.4-5.0); BILIRUBIN,TOTAL 0.3 mg/dL (0.2-1.0); CALCIUM, SERUM 8.4 mg/dL (8.5-10.1); CREATININE 3.1 mg/dL (0.6-1.3); POTASSIUM 3.5 mmol/L (3.5-5.1); TOTAL PROTEIN, SERUM 5.3 g/dL (6.4-8.2)
[2023-04-09 05:35] LABS: LYMPHOCYTES % (MANUAL) 5 % (16-48); MONOCYTES % (MANUAL) 3 % (0-11.0); NEUTROPHILS % (MANUAL) 92 (42-76); PLATELET ESTIMATE ADEQUATE
[2023-04-09] MEDS: METRONIDAZOLE 500MG/ NS 100ML 500 MG in PREMIX 1 EA IV SCH ×3 (05:48→18:23)
[2023-04-09] MEDS: PIPERACILLIN /TAZOBACTAM 2.25 G in IV D5W 50 ML IV SCH ×4 (05:48→23:23)
[2023-04-09] MEDS: NEPRO 1,000 ML BOTTLE GT PRN (05:48)
[2023-04-09] MEDS ORDERED: DC PROPOFOL WHEN EXTUBATED XX PRN (08:00)
[2023-04-09] MEDS: PANTOPRAZOLE 40 MG/PACK PACK GT SCH ×2 (08:27→21:21)
[2023-04-09] MEDS: HEPARIN SODIUM, PORCINE 5000 UNITS/1 ML VIAL SQ SCH ×2 (08:27→21:22)
[2023-04-09] MEDS: CLOPIDOGREL BISULFATE 75 MG TABLET NG SCH (08:27)
[2023-04-09] MEDS: PROSOURCE / PROSTAT (PYXIS) 30 ML UDC GT SCH (08:27)
[2023-04-09] MEDS: ASPIRIN 81 MG TAB.CHEW NG SCH (08:27)
[2023-04-09] MEDS: DIFLUCAN -NS 100 MG in PREMIX IV SCH (09:03)
[2023-04-09] MEDS: VANCOMYCIN 500 MG in IV D5W 100 ML IV PRN (15:42)
[2023-04-09] MEDS: TAMSULOSIN 0.4 MG CAP.SR.24H GT SCH (21:21)
[2023-04-10] VITALS (28 sets, daily range): BP systolic 76–141; BP diastolic 61–76; TEMP 98.7–99.2; O2SAT 97–100
[2023-04-10 04:37] LABS: BASOPHILS % (AUTO) 0.3 % (0.0-2.0); EOSINOPHILS # (AUTO) 0.2 K/uL (0.0-0.7); EOSINOPHILS % (AUTO) 1.3 % (0.0-6.0); HEMATOCRIT 26 % (39-51); HEMOGLOBIN 8.7 g/dL (13.5-17.5); LYMPHOCYTES # (AUTO) 0.9 K/uL (0.8-4.8); LYMPHOCYTES % (AUTO) 5.7 % (20.0-44.0); MEAN CORPUSCULAR HEMOGLOBIN 29 PG (26.0-33.0); MEAN CORPUSCULAR HGB CONC 34 g/dl (31.0-36.0); MEAN CORPUSCULAR VOLUME 85 fL (80-96); MONOCYTES # (AUTO) 1.3 K/uL (0.1-1.30); MONOCYTES % (AUTO) 8.2 % (2.0-12.0); NEUTROPHILS # (AUTO) 13.5 K/uL (1.8-8.9); NEUTROPHILS % (AUTO) 84.5 % (43.0-81.0); PLATELET COUNT (AUTO) 315 K/uL (150-450); RED BLOOD CELL COUNT(AUTO) 3.04 MIL/uL (4.5-6.0); RED CELL DISTRIBUTION WIDTH 17.2 % (11.5-15.0); WHITE BLOOD COUNT (AUTO) 15.9 K/uL (4.3-11.0)
[2023-04-10] MEDS: PIPERACILLIN /TAZOBACTAM 2.25 G in IV D5W 50 ML IV SCH ×4 (05:05→23:28)
[2023-04-10] MEDS: IV NS 0.9% 250 ML IV PRN ×2 (05:12→16:00)
[2023-04-10 05:41] LABS: CREATININE 3.1 mg/dL (0.6-1.3); POTASSIUM 3.4 mmol/L (3.5-5.1)
[2023-04-10] MEDS: BLOOD SUGAR DIAGNOSTIC 1 EACH STRIP IN SCH ×4 (05:50→23:26)
[2023-04-10] MEDS: INSULIN REGULAR, HUMAN 100 UNIT/ML 3 ML VIAL SQ PRN ×4 (05:52→23:27)
[2023-04-10 08:36] LABS: ABG BASE EXCESS 1.6 mmol/L; ABG OXYGEN SATURATION 97.9 % (92.0-98.5); ABG PCO2 34.3 mmHg (35.0-45.0); ABG PH 7.481 (7.350-7.450); ABG PO2 111.5 mmHg (75.0-100.0); ABG TOTAL HEMOGLOBIN 8.9 G/dL (13.5-18.0); AaDO2 98.2 mmHg; COHb 0.3 % (0.5-1.5); MetHb 0.2 % (0.0-1.5); O2Hb 97.4 % (94.0-97.0); SITE, ABG Right Radial; VENT MODE, BG CPAP PS 15 +5 35%
[2023-04-10] MEDS ORDERED: POTASSIUM BICARBONATE/CIT AC 25 MEQ TABLET.EFF PO ONE (09:30)
[2023-04-10] MEDS: CLOPIDOGREL BISULFATE 75 MG TABLET NG SCH (09:59)
[2023-04-10] MEDS: PROSOURCE / PROSTAT (PYXIS) 30 ML UDC GT SCH (09:59)
[2023-04-10] MEDS: PANTOPRAZOLE 40 MG/PACK PACK GT SCH ×2 (09:59→21:00)
[2023-04-10] MEDS: ASPIRIN 81 MG TAB.CHEW NG SCH (09:59)
[2023-04-10] MEDS: HEPARIN SODIUM, PORCINE 5000 UNITS/1 ML VIAL SQ SCH ×2 (10:01→21:01)
[2023-04-10] MEDS: NEPRO 1,000 ML BOTTLE GT PRN (10:02)
[2023-04-10] MEDS: INSULIN GLARGINE, 100 UNIT/ML CARTRIDGE SQ SCH (10:14)
[2023-04-10] MEDS ORDERED: POTASSIUM CHLORIDE 20 MEQ POWDER PACKET PO ONE (10:30)
[2023-04-10] MEDS: TAMSULOSIN 0.4 MG CAP.SR.24H GT SCH (21:22)
[2023-04-11] VITALS (24 sets, daily range): BP systolic 110–144; BP diastolic 62–77; TEMP 98.2–99.3; O2SAT 99–100
[2023-04-11 05:05] LABS: ALBUMIN 1.6 g/dL (3.4-5.0); BILIRUBIN,TOTAL 0.3 mg/dL (0.2-1.0); CALCIUM, SERUM 8.7 mg/dL (8.5-10.1); CREATININE 3.5 mg/dL (0.6-1.3); POTASSIUM 3.8 mmol/L (3.5-5.1); TOTAL PROTEIN, SERUM 5.3 g/dL (6.4-8.2)
[2023-04-11 05:19] LABS: BASOPHILS # (AUTO) 0.1 K/uL (0.0-0.2); BASOPHILS % (AUTO) 0.5 % (0.0-2.0); EOSINOPHILS # (AUTO) 0.2 K/uL (0.0-0.7); EOSINOPHILS % (AUTO) 1.3 % (0.0-6.0); HEMATOCRIT 25 % (39-51); HEMOGLOBIN 8.3 g/dL (13.5-17.5); LYMPHOCYTES # (AUTO) 0.5 K/uL (0.8-4.8); LYMPHOCYTES % (AUTO) 4.2 % (20.0-44.0); MEAN CORPUSCULAR HEMOGLOBIN 28 PG (26.0-33.0); MEAN CORPUSCULAR HGB CONC 33 g/dl (31.0-36.0); MEAN CORPUSCULAR VOLUME 85 fL (80-96); MONOCYTES # (AUTO) 1.3 K/uL (0.1-1.30); MONOCYTES % (AUTO) 9.8 % (2.0-12.0); NEUTROPHILS # (AUTO) 11.1 K/uL (1.8-8.9); NEUTROPHILS % (AUTO) 84.2 % (43.0-81.0); PLATELET COUNT (AUTO) 362 K/uL (150-450); RED BLOOD CELL COUNT(AUTO) 2.95 MIL/uL (4.5-6.0); RED CELL DISTRIBUTION WIDTH 17.2 % (11.5-15.0); WHITE BLOOD COUNT (AUTO) 13.2 K/uL (4.3-11.0)
[2023-04-11] MEDS: BLOOD SUGAR DIAGNOSTIC 1 EACH STRIP IN SCH ×3 (05:37→17:07)
[2023-04-11] MEDS: INSULIN REGULAR, HUMAN 100 UNIT/ML 3 ML VIAL SQ PRN ×3 (05:39→17:47)
[2023-04-11] MEDS: PIPERACILLIN /TAZOBACTAM 2.25 G in IV D5W 50 ML IV SCH ×2 (05:40→11:06)
[2023-04-11 05:41] LABS: EOSINOPHILS % (MANUAL) 2 % (0-4); LYMPHOCYTES % (MANUAL) 5 % (16-48); MONOCYTES % (MANUAL) 11 % (0-11.0); NEUTROPHILS % (MANUAL) 82 (42-76)
[2023-04-11 05:42] LABS: PLATELET ESTIMATE ADEQUATE
[2023-04-11] MEDS: ASPIRIN 81 MG TAB.CHEW NG SCH (08:05)
[2023-04-11] MEDS: CLOPIDOGREL BISULFATE 75 MG TABLET NG SCH (08:05)
[2023-04-11] MEDS: PANTOPRAZOLE 40 MG/PACK PACK GT SCH ×2 (08:06→20:45)
[2023-04-11] MEDS: HEPARIN SODIUM, PORCINE 5000 UNITS/1 ML VIAL SQ SCH ×2 (08:06→20:46)
[2023-04-11] MEDS: PROSOURCE / PROSTAT (PYXIS) 30 ML UDC GT SCH ×3 (08:24→16:32)
[2023-04-11] MEDS: INSULIN GLARGINE, 100 UNIT/ML CARTRIDGE SQ SCH (09:18)
[2023-04-11] MEDS: NEPRO 1,000 ML BOTTLE GT PRN (14:42)
[2023-04-11] MEDS: IV NS 0.9% 250 ML IV PRN (15:11)
[2023-04-11] MEDS: TAMSULOSIN 0.4 MG CAP.SR.24H GT SCH (20:45)
[2023-04-11] MEDS: ATORVASTATIN 10 MG TABLET PO SCH (21:56)
[2023-04-12] VITALS (24 sets, daily range): BP systolic 122–136; BP diastolic 64–79; TEMP 98.3–99.1; O2SAT 100
[2023-04-12] MEDS: BLOOD SUGAR DIAGNOSTIC 1 EACH STRIP IN SCH ×5 (00:28→23:37)
[2023-04-12 02:45] LABS: BASOPHILS # (AUTO) 0.1 K/uL (0.0-0.2); BASOPHILS % (AUTO) 0.6 % (0.0-2.0); EOSINOPHILS # (AUTO) 0.2 K/uL (0.0-0.7); EOSINOPHILS % (AUTO) 1.8 % (0.0-6.0); HEMATOCRIT 25 % (39-51); HEMOGLOBIN 8.5 g/dL (13.5-17.5); LYMPHOCYTES % (AUTO) 8.2 % (20.0-44.0); MEAN CORPUSCULAR HEMOGLOBIN 29 PG (26.0-33.0); MEAN CORPUSCULAR HGB CONC 34 g/dl (31.0-36.0); MEAN CORPUSCULAR VOLUME 85 fL (80-96); MONOCYTES # (AUTO) 1.3 K/uL (0.1-1.30); MONOCYTES % (AUTO) 10.1 % (2.0-12.0); NEUTROPHILS % (AUTO) 79.3 % (43.0-81.0); PLATELET COUNT (AUTO) 420 K/uL (150-450); RED BLOOD CELL COUNT(AUTO) 2.97 MIL/uL (4.5-6.0); RED CELL DISTRIBUTION WIDTH 17.3 % (11.5-15.0); WHITE BLOOD COUNT (AUTO) 12.6 K/uL (4.3-11.0)
[2023-04-12 02:57] LABS: ALBUMIN 1.7 g/dL (3.4-5.0); BILIRUBIN,TOTAL 0.3 mg/dL (0.2-1.0); CALCIUM, SERUM 9.1 mg/dL (8.5-10.1); CREATININE 3.4 mg/dL (0.6-1.3); POTASSIUM 3.8 mmol/L (3.5-5.1); TOTAL PROTEIN, SERUM 5.7 g/dL (6.4-8.2)
[2023-04-12 03:01] LABS: INR 1.04 (0.91-1.10); PROTHROMBIN TIME 10.9 SECS (9.2-11.1)
[2023-04-12] MEDS: PANTOPRAZOLE 40 MG/PACK PACK GT SCH ×2 (08:29→21:15)
[2023-04-12] MEDS: ASPIRIN 81 MG TAB.CHEW NG SCH (08:29)
[2023-04-12] MEDS: CLOPIDOGREL BISULFATE 75 MG TABLET NG SCH (08:29)
[2023-04-12] MEDS: PROSOURCE / PROSTAT (PYXIS) 30 ML UDC GT SCH ×3 (08:30→16:41)
[2023-04-12] MEDS: NEPRO 1,000 ML BOTTLE GT PRN (08:40)
[2023-04-12] MEDS: INSULIN GLARGINE, 100 UNIT/ML CARTRIDGE SQ SCH (09:00)
[2023-04-12] MEDS ORDERED: PHENYLEPHRINE 50 MG in IV NS 0.9% 245 ML IV PRN (15:30)
[2023-04-12] MEDS: INSULIN REGULAR, HUMAN 100 UNIT/ML 3 ML VIAL SQ PRN ×2 (17:45→23:39)
[2023-04-12] MEDS: ATORVASTATIN 10 MG TABLET PO SCH (21:16)
[2023-04-12] MEDS: TAMSULOSIN 0.4 MG CAP.SR.24H GT SCH (21:16)
[2023-04-13] VITALS (24 sets, daily range): BP systolic 114–141; BP diastolic 61–83; TEMP 98–98.9; O2SAT 100
[2023-04-13 04:58] LABS: BASOPHILS # (AUTO) 0.1 K/uL (0.0-0.2); BASOPHILS % (AUTO) 0.5 % (0.0-2.0); EOSINOPHILS # (AUTO) 0.2 K/uL (0.0-0.7); EOSINOPHILS % (AUTO) 1.4 % (0.0-6.0); HEMATOCRIT 24 % (39-51); HEMOGLOBIN 7.9 g/dL (13.5-17.5); LYMPHOCYTES # (AUTO) 0.9 K/uL (0.8-4.8); LYMPHOCYTES % (AUTO) 8.3 % (20.0-44.0); MEAN CORPUSCULAR HEMOGLOBIN 28 PG (26.0-33.0); MEAN CORPUSCULAR HGB CONC 33 g/dl (31.0-36.0); MEAN CORPUSCULAR VOLUME 85 fL (80-96); MONOCYTES # (AUTO) 1.2 K/uL (0.1-1.30); MONOCYTES % (AUTO) 10.4 % (2.0-12.0); NEUTROPHILS # (AUTO) 8.9 K/uL (1.8-8.9); NEUTROPHILS % (AUTO) 79.4 % (43.0-81.0); PLATELET COUNT (AUTO) 416 K/uL (150-450); RED BLOOD CELL COUNT(AUTO) 2.78 MIL/uL (4.5-6.0); RED CELL DISTRIBUTION WIDTH 17.1 % (11.5-15.0); WHITE BLOOD COUNT (AUTO) 11.2 K/uL (4.3-11.0)
[2023-04-13 05:20] LABS: CALCIUM, SERUM 9.1 mg/dL (8.5-10.1); CREATININE 3.1 mg/dL (0.6-1.3); PHOSPHORUS 3.5 mg/dL (2.5-4.9); POTASSIUM 3.7 mmol/L (3.5-5.1)
[2023-04-13] MEDS: BLOOD SUGAR DIAGNOSTIC 1 EACH STRIP IN SCH ×3 (06:21→18:16)
[2023-04-13] MEDS: INSULIN REGULAR, HUMAN 100 UNIT/ML 3 ML VIAL SQ PRN ×3 (06:23→18:43)
[2023-04-13] MEDS: PANTOPRAZOLE 40 MG/PACK PACK GT SCH ×2 (09:43→21:03)
[2023-04-13] MEDS: CLOPIDOGREL BISULFATE 75 MG TABLET NG SCH (09:43)
[2023-04-13] MEDS: ASPIRIN 81 MG TAB.CHEW NG SCH (09:43)
[2023-04-13] MEDS: PROSOURCE / PROSTAT (PYXIS) 30 ML UDC GT SCH ×3 (09:47→18:16)
[2023-04-13] MEDS: INSULIN GLARGINE, 100 UNIT/ML CARTRIDGE SQ SCH (09:57)
[2023-04-13] MEDS: NEPRO 1,000 ML BOTTLE GT PRN (13:15)
[2023-04-13] MEDS ORDERED: DEXTROSE 50%-WATER 50 ML DISP.SYRIN IV PRN (13:30)
[2023-04-13] MEDS: TAMSULOSIN 0.4 MG CAP.SR.24H GT SCH (21:03)
[2023-04-13] MEDS: ATORVASTATIN 10 MG TABLET PO SCH (21:03)
[2023-04-14] VITALS (24 sets, daily range): BP systolic 121–146; BP diastolic 68–85; TEMP 97.7–99; O2SAT 96–100
[2023-04-14] MEDS: BLOOD SUGAR DIAGNOSTIC 1 EACH STRIP IN SCH ×4 (00:42→17:53)
[2023-04-14] MEDS ORDERED: oxyCODONE/APAP (5/325 MG) 1 UDTAB TABLET PO PRN (04:00)
[2023-04-14 04:40] LABS: BASOPHILS # (AUTO) 0.1 K/uL (0.0-0.2); BASOPHILS % (AUTO) 0.6 % (0.0-2.0); EOSINOPHILS # (AUTO) 0.2 K/uL (0.0-0.7); EOSINOPHILS % (AUTO) 1.7 % (0.0-6.0); HEMATOCRIT 21 % (39-51); LYMPHOCYTES # (AUTO) 0.7 K/uL (0.8-4.8); LYMPHOCYTES % (AUTO) 6.3 % (20.0-44.0); MEAN CORPUSCULAR HEMOGLOBIN 29 PG (26.0-33.0); MEAN CORPUSCULAR HGB CONC 33 g/dl (31.0-36.0); MEAN CORPUSCULAR VOLUME 86 fL (80-96); MONOCYTES % (AUTO) 9.2 % (2.0-12.0); NEUTROPHILS # (AUTO) 9.1 K/uL (1.8-8.9); NEUTROPHILS % (AUTO) 82.2 % (43.0-81.0); PLATELET COUNT (AUTO) 445 K/uL (150-450); RED BLOOD CELL COUNT(AUTO) 2.46 MIL/uL (4.5-6.0); RED CELL DISTRIBUTION WIDTH 17.1 % (11.5-15.0)
[2023-04-14 05:15] LABS: ALBUMIN 1.7 g/dL (3.4-5.0); BILIRUBIN,TOTAL 0.3 mg/dL (0.2-1.0); CALCIUM, SERUM 8.9 mg/dL (8.5-10.1); CREATININE 4.8 mg/dL (0.6-1.3); PHOSPHORUS 4.9 mg/dL (2.5-4.9); POTASSIUM 3.9 mmol/L (3.5-5.1); TOTAL PROTEIN, SERUM 5.8 g/dL (6.4-8.2)
[2023-04-14] MEDS: INSULIN REGULAR, HUMAN 100 UNIT/ML 3 ML VIAL SQ PRN ×3 (06:17→18:02)
[2023-04-14] MEDS: ASPIRIN 81 MG TAB.CHEW NG SCH (08:19)
[2023-04-14] MEDS: PANTOPRAZOLE 40 MG/PACK PACK GT SCH ×2 (08:19→21:44)
[2023-04-14] MEDS: CLOPIDOGREL BISULFATE 75 MG TABLET NG SCH (08:19)
[2023-04-14] MEDS: INSULIN GLARGINE, 100 UNIT/ML CARTRIDGE SQ SCH (08:26)
[2023-04-14] MEDS: PROSOURCE / PROSTAT (PYXIS) 30 ML UDC GT SCH ×3 (08:40→17:53)
[2023-04-14] MEDS: NEPRO 1,000 ML BOTTLE GT PRN (18:37)
[2023-04-14] MEDS: TAMSULOSIN 0.4 MG CAP.SR.24H GT SCH (21:44)
[2023-04-14] MEDS: ATORVASTATIN 10 MG TABLET PO SCH (21:44)
[2023-04-15] VITALS (30 sets, daily range): BP systolic 77–136; BP diastolic 56–85; TEMP 97.4–99.3; O2SAT 52–100
[2023-04-15] MEDS: INSULIN REGULAR, HUMAN 100 UNIT/ML 3 ML VIAL SQ PRN ×3 (00:07→17:34)
[2023-04-15] MEDS: BLOOD SUGAR DIAGNOSTIC 1 EACH STRIP IN SCH ×4 (00:07→17:29)
[2023-04-15 04:56] LABS: CALCIUM, SERUM 9.7 mg/dL (8.5-10.1); CREATININE 3.6 mg/dL (0.6-1.3); POTASSIUM 3.9 mmol/L (3.5-5.1)
[2023-04-15 05:17] LABS: BASOPHILS # (AUTO) 0.1 K/uL (0.0-0.2); BASOPHILS % (AUTO) 0.6 % (0.0-2.0); EOSINOPHILS # (AUTO) 0.2 K/uL (0.0-0.7); EOSINOPHILS % (AUTO) 1.7 % (0.0-6.0); HEMATOCRIT 25 % (39-51); HEMOGLOBIN 8.2 g/dL (13.5-17.5); LYMPHOCYTES # (AUTO) 1.1 K/uL (0.8-4.8); LYMPHOCYTES % (AUTO) 9.1 % (20.0-44.0); MEAN CORPUSCULAR HEMOGLOBIN 28 PG (26.0-33.0); MEAN CORPUSCULAR HGB CONC 33 g/dl (31.0-36.0); MEAN CORPUSCULAR VOLUME 86 fL (80-96); MONOCYTES # (AUTO) 0.9 K/uL (0.1-1.30); MONOCYTES % (AUTO) 7.8 % (2.0-12.0); NEUTROPHILS # (AUTO) 9.5 K/uL (1.8-8.9); NEUTROPHILS % (AUTO) 80.8 % (43.0-81.0); PLATELET COUNT (AUTO) 443 K/uL (150-450); RED CELL DISTRIBUTION WIDTH 17.4 % (11.5-15.0); WHITE BLOOD COUNT (AUTO) 11.8 K/uL (4.3-11.0)
[2023-04-15] MEDS: PROSOURCE / PROSTAT (PYXIS) 30 ML UDC GT SCH ×4 (08:00→17:31)
[2023-04-15] MEDS: PANTOPRAZOLE 40 MG/PACK PACK GT SCH ×2 (08:10→21:31)
[2023-04-15] MEDS: ASPIRIN 81 MG TAB.CHEW NG SCH (08:10)
[2023-04-15] MEDS: CLOPIDOGREL BISULFATE 75 MG TABLET NG SCH (08:10)
[2023-04-15] MEDS: INSULIN GLARGINE, 100 UNIT/ML CARTRIDGE SQ SCH (08:18)
[2023-04-15] MEDS ORDERED: PROPOFOL 100 ML IV PRN (13:00)
[2023-04-15] MEDS: PROPOFOL 100 ML IV PRN (13:00)
[2023-04-15 13:27] LABS: ABG BASE EXCESS -14.9 mmol/L; ABG OXYGEN SATURATION 71.4 % (92.0-98.5); ABG PCO2 45.4 mmHg (35.0-45.0); ABG PH 7.107 (7.350-7.450); ABG TOTAL HEMOGLOBIN 10.4 G/dL (13.5-18.0); AaDO2 255.4 mmHg; COHb 0.1 % (0.5-1.5); O2Hb 71.3 % (94.0-97.0); SITE, ABG Left Radial; VENT MODE, BG 6L NC
[2023-04-15] MEDS: ALBUMIN 25% 25 GM in PREMIX 1 EA IV PRN ×2 (13:54→15:45)
[2023-04-15] MEDS ORDERED: ROCURONIUM BROMIDE 50 MG/5 ML IV ONE (14:32)
[2023-04-15] MEDS ORDERED: ETOMIDATE 2 MG/ML VIAL IV ONE (14:32)
[2023-04-15 16:54] LABS: ABG BASE EXCESS 1.1 mmol/L; ABG OXYGEN SATURATION 93.5 % (92.0-98.5); ABG PCO2 36.9 mmHg (35.0-45.0); ABG PO2 69.4 mmHg (75.0-100.0); ABG TOTAL HEMOGLOBIN 8.5 G/dL (13.5-18.0); AaDO2 245.6 mmHg; COHb 0.3 % (0.5-1.5); MetHb 0.3 % (0.0-1.5); O2Hb 92.9 % (94.0-97.0); SITE, ABG Right Radial; VENT MODE, BG ac 24 450 +5 50%
[2023-04-15] MEDS: NEPRO 1,000 ML BOTTLE GT PRN (17:12)
[2023-04-15] MEDS ORDERED: HYDROMORPHONE 1 MG/1 ML DISP.SYRIN IV PRN (21:30)
[2023-04-15] MEDS ORDERED: NOREPINEPHRINE 32 MG in IV NS 0.9% 218 ML IV PRN ×2 (21:30→22:00)
[2023-04-15] MEDS: ATORVASTATIN 10 MG TABLET PO SCH (21:31)
[2023-04-15] MEDS: TAMSULOSIN 0.4 MG CAP.SR.24H GT SCH (21:31)
[2023-04-15] MEDS ORDERED: PIPERCILLIN/TAZOBACTAM 2.25GM/D5W 50MLPB IV ONE (21:43)
[2023-04-15] MEDS: PIPERACILLIN /TAZOBACTAM 2.25 G in IV D5W 50 ML IV SCH (21:52)
[2023-04-15] MEDS ORDERED: ONDANSETRON HCL/PF 4 MG/2 ML VIAL IV PRN (22:00)
[2023-04-15] MEDS: HYDROMORPHONE 1 MG/1 ML DISP.SYRIN IV PRN (22:19)
[2023-04-15] MEDS: IV NS 0.9% 250 ML IV PRN (22:27)
[2023-04-16] VITALS (51 sets, daily range): BP systolic 83–156; BP diastolic 49–117; TEMP 96.9–99.6; O2SAT 93–100
[2023-04-16] MEDS: BLOOD SUGAR DIAGNOSTIC 1 EACH STRIP IN SCH ×4 (00:02→17:09)
[2023-04-16] MEDS: INSULIN REGULAR, HUMAN 100 UNIT/ML 3 ML VIAL SQ PRN ×4 (00:09→17:37)
[2023-04-16] MEDS: PROPOFOL 100 ML IV PRN ×3 (00:58→22:03)
[2023-04-16] MEDS: HYDROMORPHONE 1 MG/1 ML DISP.SYRIN IV PRN (02:59)
[2023-04-16 03:44] LABS: BASOPHILS % (AUTO) 0.4 % (0.0-2.0); EOSINOPHILS # (AUTO) 0.2 K/uL (0.0-0.7); EOSINOPHILS % (AUTO) 1.5 % (0.0-6.0); LYMPHOCYTES # (AUTO) 0.8 K/uL (0.8-4.8); LYMPHOCYTES % (AUTO) 7.6 % (20.0-44.0); MEAN CORPUSCULAR HEMOGLOBIN 30 PG (26.0-33.0); MEAN CORPUSCULAR HGB CONC 35 g/dl (31.0-36.0); MEAN CORPUSCULAR VOLUME 86 fL (80-96); MONOCYTES # (AUTO) 0.6 K/uL (0.1-1.30); NEUTROPHILS # (AUTO) 8.7 K/uL (1.8-8.9); NEUTROPHILS % (AUTO) 84.5 % (43.0-81.0); PLATELET COUNT (AUTO) 321 K/uL (150-450); RED BLOOD CELL COUNT(AUTO) 2.21 MIL/uL (4.5-6.0); RED CELL DISTRIBUTION WIDTH 16.6 % (11.5-15.0); WHITE BLOOD COUNT (AUTO) 10.3 K/uL (4.3-11.0)
[2023-04-16 03:47] LABS: HEMATOCRIT 19 % (39-51); HEMOGLOBIN 6.7 g/dL (13.5-17.5)
[2023-04-16 03:54] LABS: CALCIUM, SERUM 8.7 mg/dL (8.5-10.1); CREATININE 2.8 mg/dL (0.6-1.3); POTASSIUM 3.4 mmol/L (3.5-5.1)
[2023-04-16] MEDS ORDERED: PIPERCILLIN/TAZOBACTAM 2.25GM/D5W 50MLPB IV ONE (05:38)
[2023-04-16] MEDS: PIPERACILLIN /TAZOBACTAM 2.25 G in IV D5W 50 ML IV SCH ×3 (05:43→21:22)
[2023-04-16] MEDS ORDERED: NOREPINEPHRINE 8 MG in IV NS 0.9% 250ML IV PRN (06:30)
[2023-04-16 07:27] LABS: ABG BASE EXCESS 1.1 mmol/L; ABG OXYGEN SATURATION 97.9 % (92.0-98.5); ABG PCO2 32.1 mmHg (35.0-45.0); ABG PH 7.495 (7.350-7.450); ABG PO2 113.8 mmHg (75.0-100.0); ABG TOTAL HEMOGLOBIN 8.2 G/dL (13.5-18.0); AaDO2 134.5 mmHg; COHb 0.1 % (0.5-1.5); MetHb 0.3 % (0.0-1.5); O2Hb 97.5 % (94.0-97.0); SITE, ABG Right Radial
[2023-04-16] MEDS: ASPIRIN 81 MG TAB.CHEW NG SCH (08:23)
[2023-04-16] MEDS: CLOPIDOGREL BISULFATE 75 MG TABLET NG SCH (08:23)
[2023-04-16] MEDS: PANTOPRAZOLE 40 MG/PACK PACK GT SCH ×2 (09:18→21:22)
[2023-04-16] MEDS: PROSOURCE / PROSTAT (PYXIS) 30 ML UDC GT SCH ×3 (09:19→17:03)
[2023-04-16] MEDS: INSULIN GLARGINE, 100 UNIT/ML CARTRIDGE SQ SCH (09:22)
[2023-04-16] MEDS ORDERED: POTASSIUM CHLORIDE 20 MEQ POWDER PACKET GT ONE (09:30)
[2023-04-16 12:05] LABS: ANISOCYTOSIS 1+; BASOPHILS % (MANUAL) 0 % (0.0-2.0); EOSINOPHILS % (MANUAL) 2 % (0-4); HYPOCHROMASIA 1+; LYMPHOCYTES % (MANUAL) 9 % (16-48); MONOCYTES % (MANUAL) 5 % (0-11.0); NEUTROPHILS % (MANUAL) 84 (42-76); PLATELET ESTIMATE ADEQUATE; STOMATOCYTES 1+
[2023-04-16] MEDS: IV NS 0.9% 250 ML IV PRN (15:56)
[2023-04-16] MEDS: hydrALAZINE HCL 10 MG TABLET PO SCH ×2 (16:30→21:00)
[2023-04-16 16:59] LABS: HEMOGLOBIN 8.4 g/dL (13.5-17.5)
[2023-04-16] MEDS: NEPRO 1,000 ML BOTTLE GT PRN (17:02)
[2023-04-16] MEDS: TAMSULOSIN 0.4 MG CAP.SR.24H GT SCH (21:22)
[2023-04-16] MEDS: ATORVASTATIN 10 MG TABLET PO SCH (21:23)
[2023-04-17] VITALS (41 sets, daily range): BP systolic 86–136; BP diastolic 51–81; TEMP 97.5–98.6; O2SAT 94–100
[2023-04-17] MEDS: BLOOD SUGAR DIAGNOSTIC 1 EACH STRIP IN SCH ×4 (00:33→17:11)
[2023-04-17] MEDS: INSULIN REGULAR, HUMAN 100 UNIT/ML 3 ML VIAL SQ PRN ×3 (00:41→17:08)
[2023-04-17] MEDS: PROPOFOL 100 ML IV PRN (04:21)
[2023-04-17 04:50] LABS: ALBUMIN 2.1 g/dL (3.4-5.0); BILIRUBIN,TOTAL 0.3 mg/dL (0.2-1.0); CALCIUM, SERUM 9.4 mg/dL (8.5-10.1); CREATININE 2.4 mg/dL (0.6-1.3); MAGNESIUM 1.9 mg/dL (1.8-2.4); POTASSIUM 3.7 mmol/L (3.5-5.1); TOTAL PROTEIN, SERUM 5.6 g/dL (6.4-8.2)
[2023-04-17] MEDS: hydrALAZINE HCL 10 MG TABLET PO SCH ×3 (05:00→21:00)
[2023-04-17] MEDS: HYDROMORPHONE 1 MG/1 ML DISP.SYRIN IV PRN ×2 (05:17→20:19)
[2023-04-17] MEDS: PIPERACILLIN /TAZOBACTAM 2.25 G in IV D5W 50 ML IV SCH ×2 (05:27→13:02)
[2023-04-17 07:58] LABS: ABG BASE EXCESS 2.1 mmol/L; ABG OXYGEN SATURATION 97.7 % (92.0-98.5); ABG PCO2 37.3 mmHg (35.0-45.0); ABG PH 7.461 (7.350-7.450); ABG PO2 108.4 mmHg (75.0-100.0); ABG TOTAL HEMOGLOBIN 7.9 G/dL (13.5-18.0); AaDO2 133.9 mmHg; COHb 0.3 % (0.5-1.5); MetHb 0.1 % (0.0-1.5); O2Hb 97.3 % (94.0-97.0); PEEP,BG 5 cm H2O; SITE, ABG Right Brachial; VT, ABG 450 mL
[2023-04-17] MEDS: ASPIRIN 81 MG TAB.CHEW NG SCH (08:09)
[2023-04-17] MEDS: PROSOURCE / PROSTAT (PYXIS) 30 ML UDC GT SCH ×3 (08:09→16:19)
[2023-04-17] MEDS: PANTOPRAZOLE 40 MG/PACK PACK GT SCH ×2 (08:09→20:18)
[2023-04-17] MEDS: CLOPIDOGREL BISULFATE 75 MG TABLET NG SCH (08:09)
[2023-04-17] MEDS: INSULIN GLARGINE, 100 UNIT/ML CARTRIDGE SQ SCH (08:12)
[2023-04-17] MEDS: NEPRO 1,000 ML BOTTLE GT PRN (15:58)
[2023-04-17] MEDS: TAMSULOSIN 0.4 MG CAP.SR.24H GT SCH (21:13)
[2023-04-17] MEDS: ATORVASTATIN 10 MG TABLET PO SCH (21:15)
[2023-04-18] VITALS (23 sets, daily range): BP systolic 115–138; BP diastolic 60–83; TEMP 97.5–98.6; O2SAT 95–100
[2023-04-18] MEDS: BLOOD SUGAR DIAGNOSTIC 1 EACH STRIP IN SCH ×4 (00:28→20:40)
[2023-04-18] MEDS: INSULIN REGULAR, HUMAN 100 UNIT/ML 3 ML VIAL SQ PRN ×2 (00:31→05:07)
[2023-04-18 03:11] LABS: ALBUMIN 2.1 g/dL (3.4-5.0); BILIRUBIN,TOTAL 0.2 mg/dL (0.2-1.0); CALCIUM, SERUM 8.7 mg/dL (8.5-10.1); CREATININE 2.5 mg/dL (0.6-1.3); POTASSIUM 3.4 mmol/L (3.5-5.1); TOTAL PROTEIN, SERUM 5.8 g/dL (6.4-8.2)
[2023-04-18 03:13] LABS: BASOPHILS # (AUTO) 0.1 K/uL (0.0-0.2); BASOPHILS % (AUTO) 0.7 % (0.0-2.0); EOSINOPHILS # (AUTO) 0.3 K/uL (0.0-0.7); EOSINOPHILS % (AUTO) 2.9 % (0.0-6.0); HEMATOCRIT 23 % (39-51); HEMOGLOBIN 7.6 g/dL (13.5-17.5); LYMPHOCYTES # (AUTO) 0.9 K/uL (0.8-4.8); LYMPHOCYTES % (AUTO) 8.9 % (20.0-44.0); MEAN CORPUSCULAR HEMOGLOBIN 29 PG (26.0-33.0); MEAN CORPUSCULAR HGB CONC 34 g/dl (31.0-36.0); MEAN CORPUSCULAR VOLUME 86 fL (80-96); MONOCYTES # (AUTO) 0.7 K/uL (0.1-1.30); MONOCYTES % (AUTO) 7.1 % (2.0-12.0); NEUTROPHILS # (AUTO) 8.1 K/uL (1.8-8.9); NEUTROPHILS % (AUTO) 80.4 % (43.0-81.0); PLATELET COUNT (AUTO) 277 K/uL (150-450); RED BLOOD CELL COUNT(AUTO) 2.65 MIL/uL (4.5-6.0); RED CELL DISTRIBUTION WIDTH 16.3 % (11.5-15.0)
[2023-04-18 03:14] LABS: INR 1.06 (0.91-1.10); PARTIAL THROMBOPLASTIN TIME 22.1 SEC (24.3-34.3); PROTHROMBIN TIME 11.1 SECS (9.2-11.1)
[2023-04-18] MEDS: hydrALAZINE HCL 10 MG TABLET PO SCH ×2 (04:15→13:00)
[2023-04-18] MEDS: HYDROMORPHONE 1 MG/1 ML DISP.SYRIN IV PRN (04:33)
[2023-04-18] MEDS: PROSOURCE / PROSTAT (PYXIS) 30 ML UDC GT SCH ×3 (07:38→16:45)
[2023-04-18] MEDS: PANTOPRAZOLE 40 MG/PACK PACK GT SCH ×2 (07:38→21:50)
[2023-04-18] MEDS: INSULIN GLARGINE, 100 UNIT/ML CARTRIDGE SQ SCH (07:39)
[2023-04-18] MEDS: CLOPIDOGREL BISULFATE 75 MG TABLET NG SCH (07:39)
[2023-04-18] MEDS: ASPIRIN 81 MG TAB.CHEW NG SCH (07:39)
[2023-04-18] MEDS ORDERED: IV SET PRIMARY PUMP SET 1 EA INFUS.SET MC ONE ×2 (08:31→09:06)
[2023-04-18] MEDS ORDERED: IV NS 0.9% 1,000 ML ONE (08:31)
[2023-04-18] MEDS ORDERED: LIDOCAINE HCL/MPF 1% 30 ML VIAL IJ ONE (08:32)
[2023-04-18] MEDS ORDERED: IODIXANOL 150 ML IV ONE (08:33)
[2023-04-18] MEDS ORDERED: NITROGLYCERIN IN 5 % DEXTROSE 250 ML IV ONE (08:34)
[2023-04-18] MEDS ORDERED: POTASSIUM CHLORIDE 20 MEQ TAB.PRT.SR PO ONE (09:00)
[2023-04-18] MEDS ORDERED: METOPROLOL TARTRATE INJ 5 MG/5 ML AMPUL ONE (09:31)
[2023-04-18] MEDS ORDERED: MIDAZOLAM HCL 2 MG/2ML VIAL ONE (09:35)
[2023-04-18] MEDS ORDERED: METOPROLOL TARTRATE 25 MG TABLET PO SCH (10:30)
[2023-04-18] MEDS: PROPOFOL 100 ML IV PRN (10:41)
[2023-04-18] MEDS: ATORVASTATIN 10 MG TABLET GT SCH (21:50)
[2023-04-18] MEDS: TAMSULOSIN 0.4 MG CAP.SR.24H GT SCH (21:50)
[2023-04-18] MEDS: METOPROLOL TARTRATE 25 MG TABLET GT SCH (21:52)
[2023-04-18] MEDS: hydrALAZINE HCL 10 MG TABLET GT SCH (21:52)
[2023-04-19] VITALS (33 sets, daily range): BP systolic 109–142; BP diastolic 53–78; TEMP 97.8–98.8; O2SAT 95–100
[2023-04-19] MEDS: BLOOD SUGAR DIAGNOSTIC 1 EACH STRIP IN SCH ×4 (00:19→17:15)
[2023-04-19] MEDS: PROPOFOL 100 ML IV PRN (03:58)
[2023-04-19] MEDS: NEPRO 1,000 ML BOTTLE GT PRN (04:40)
[2023-04-19] MEDS: hydrALAZINE HCL 10 MG TABLET GT SCH ×3 (04:40→22:05)
[2023-04-19 04:49] LABS: BASOPHILS # (AUTO) 0.1 K/uL (0.0-0.2); BASOPHILS % (AUTO) 0.6 % (0.0-2.0); EOSINOPHILS # (AUTO) 0.2 K/uL (0.0-0.7); EOSINOPHILS % (AUTO) 1.9 % (0.0-6.0); HEMATOCRIT 23 % (39-51); HEMOGLOBIN 7.9 g/dL (13.5-17.5); LYMPHOCYTES # (AUTO) 0.9 K/uL (0.8-4.8); LYMPHOCYTES % (AUTO) 8.7 % (20.0-44.0); MEAN CORPUSCULAR HEMOGLOBIN 29 PG (26.0-33.0); MEAN CORPUSCULAR HGB CONC 34 g/dl (31.0-36.0); MEAN CORPUSCULAR VOLUME 87 fL (80-96); MONOCYTES # (AUTO) 0.7 K/uL (0.1-1.30); MONOCYTES % (AUTO) 6.8 % (2.0-12.0); NEUTROPHILS # (AUTO) 8.5 K/uL (1.8-8.9); PLATELET COUNT (AUTO) 251 K/uL (150-450); RED CELL DISTRIBUTION WIDTH 16.4 % (11.5-15.0); WHITE BLOOD COUNT (AUTO) 10.4 K/uL (4.3-11.0)
[2023-04-19 05:08] LABS: ALBUMIN 2.1 g/dL (3.4-5.0); BILIRUBIN,TOTAL 0.4 mg/dL (0.2-1.0); CALCIUM, SERUM 8.1 mg/dL (8.5-10.1); CREATININE 2.5 mg/dL (0.6-1.3); MAGNESIUM 1.6 mg/dL (1.8-2.4)
[2023-04-19] MEDS ORDERED: POTASSIUM CHLORIDE 20 MEQ TAB.PRT.SR PO ONE (08:00)
[2023-04-19 08:22] LABS: ABG BASE EXCESS 2.1 mmol/L; ABG OXYGEN SATURATION 98.6 % (92.0-98.5); ABG PCO2 33.6 mmHg (35.0-45.0); ABG PH 7.494 (7.350-7.450); ABG PO2 146.6 mmHg (75.0-100.0); ABG TOTAL HEMOGLOBIN 8.8 G/dL (13.5-18.0); AaDO2 172.1 mmHg; COHb 0.3 % (0.5-1.5); MetHb 0.3 % (0.0-1.5); PEEP,BG 5 cm H2O; SITE, ABG Right Radial; VT, ABG 450 mL
[2023-04-19] MEDS: PROSOURCE / PROSTAT (PYXIS) 30 ML UDC GT SCH ×3 (08:36→16:52)
[2023-04-19] MEDS: PANTOPRAZOLE 40 MG/PACK PACK GT SCH ×2 (08:37→22:04)
[2023-04-19] MEDS: INSULIN GLARGINE, 100 UNIT/ML CARTRIDGE SQ SCH (08:48)
[2023-04-19] MEDS ORDERED: POTASSIUM CHLORIDE 20 MEQ POWDER PACKET GT ONE (09:00)
[2023-04-19] MEDS: METOPROLOL TARTRATE 25 MG TABLET GT SCH ×2 (10:32→22:04)
[2023-04-19] MEDS: INSULIN REGULAR, HUMAN 100 UNIT/ML 3 ML VIAL SQ PRN ×2 (12:19→17:15)
[2023-04-19] MEDS: oxyCODONE/APAP (5/325 MG) 1 UDTAB TABLET GT PRN (12:26)
[2023-04-19] MEDS: TAMSULOSIN 0.4 MG CAP.SR.24H GT SCH (22:04)
[2023-04-19] MEDS: ATORVASTATIN 10 MG TABLET GT SCH (22:05)
[2023-04-20] VITALS (25 sets, daily range): BP systolic 104–145; BP diastolic 58–85; TEMP 95.8–99; O2SAT 89–100
[2023-04-20] MEDS: oxyCODONE/APAP (5/325 MG) 1 UDTAB TABLET GT PRN (00:01)
[2023-04-20] MEDS: NEPRO 1,000 ML BOTTLE GT PRN (05:00)
[2023-04-20] MEDS: HYDROMORPHONE 1 MG/1 ML DISP.SYRIN IV PRN ×2 (05:19→20:57)
[2023-04-20] MEDS: hydrALAZINE HCL 10 MG TABLET GT SCH ×3 (05:19→22:23)
[2023-04-20 05:47] LABS: BASOPHILS # (AUTO) 0.1 K/uL (0.0-0.2); BASOPHILS % (AUTO) 0.6 % (0.0-2.0); EOSINOPHILS # (AUTO) 0.2 K/uL (0.0-0.7); EOSINOPHILS % (AUTO) 1.8 % (0.0-6.0); HEMATOCRIT 25 % (39-51); HEMOGLOBIN 8.1 g/dL (13.5-17.5); LYMPHOCYTES # (AUTO) 1.1 K/uL (0.8-4.8); LYMPHOCYTES % (AUTO) 10.4 % (20.0-44.0); MEAN CORPUSCULAR HEMOGLOBIN 29 PG (26.0-33.0); MEAN CORPUSCULAR HGB CONC 33 g/dl (31.0-36.0); MEAN CORPUSCULAR VOLUME 88 fL (80-96); MONOCYTES # (AUTO) 0.8 K/uL (0.1-1.30); MONOCYTES % (AUTO) 7.5 % (2.0-12.0); NEUTROPHILS % (AUTO) 79.7 % (43.0-81.0); PLATELET COUNT (AUTO) 233 K/uL (150-450); RED BLOOD CELL COUNT(AUTO) 2.82 MIL/uL (4.5-6.0); RED CELL DISTRIBUTION WIDTH 16.4 % (11.5-15.0); WHITE BLOOD COUNT (AUTO) 10.1 K/uL (4.3-11.0)
[2023-04-20] MEDS: BLOOD SUGAR DIAGNOSTIC 1 EACH STRIP IN SCH ×5 (06:25→23:52)
[2023-04-20 07:23] LABS: ALBUMIN 2.2 g/dL (3.4-5.0); BILIRUBIN,TOTAL 0.3 mg/dL (0.2-1.0); CALCIUM, SERUM 9.2 mg/dL (8.5-10.1); CREATININE 2.9 mg/dL (0.6-1.3); POTASSIUM 3.3 mmol/L (3.5-5.1); TOTAL PROTEIN, SERUM 6.2 g/dL (6.4-8.2)
[2023-04-20] MEDS: PROSOURCE / PROSTAT (PYXIS) 30 ML UDC GT SCH ×3 (09:18→16:15)
[2023-04-20] MEDS: METOPROLOL TARTRATE 25 MG TABLET GT SCH ×2 (09:20→22:23)
[2023-04-20] MEDS: PANTOPRAZOLE 40 MG/PACK PACK GT SCH ×2 (09:20→22:22)
[2023-04-20 09:23] LABS: ABG BASE EXCESS -1.3 mmol/L; ABG OXYGEN SATURATION 97.7 % (92.0-98.5); ABG PCO2 39.9 mmHg (35.0-45.0); ABG PH 7.388 (7.350-7.450); ABG PO2 107.8 mmHg (75.0-100.0); ABG TOTAL HEMOGLOBIN 9.3 G/dL (13.5-18.0); AaDO2 95.4 mmHg; MetHb 0.2 % (0.0-1.5); O2Hb 97.5 % (94.0-97.0); SITE, ABG Right Radial; VENT MODE, BG CPAP 5 PSV 15
[2023-04-20] MEDS: INSULIN GLARGINE, 100 UNIT/ML CARTRIDGE SQ SCH (09:25)
[2023-04-20] MEDS ORDERED: POTASSIUM CHLORIDE 10 MEQ/50 ML PREMIXED IVPB FOR PERIPHERAL LINE IV ONE (09:30)
[2023-04-20] MEDS: FLUCONAZOLE (100 MG) 100 MG TABLET GT SCH (12:44)
[2023-04-20] MEDS: INSULIN REGULAR, HUMAN 100 UNIT/ML 3 ML VIAL SQ PRN (17:25)
[2023-04-20] MEDS: TAMSULOSIN 0.4 MG CAP.SR.24H GT SCH (22:22)
[2023-04-20] MEDS: ATORVASTATIN 10 MG TABLET GT SCH (22:23)
[2023-04-21] VITALS (24 sets, daily range): BP systolic 102–137; BP diastolic 60–97; TEMP 97.6–98.8; O2SAT 98–100
[2023-04-21] MEDS: HYDROMORPHONE 1 MG/1 ML DISP.SYRIN IV PRN (02:13)
[2023-04-21 05:04] LABS: BASOPHILS # (AUTO) 0.1 K/uL (0.0-0.2); BASOPHILS % (AUTO) 0.8 % (0.0-2.0); EOSINOPHILS # (AUTO) 0.2 K/uL (0.0-0.7); EOSINOPHILS % (AUTO) 1.6 % (0.0-6.0); HEMATOCRIT 26 % (39-51); HEMOGLOBIN 8.3 g/dL (13.5-17.5); LYMPHOCYTES # (AUTO) 1.4 K/uL (0.8-4.8); LYMPHOCYTES % (AUTO) 12.8 % (20.0-44.0); MEAN CORPUSCULAR HEMOGLOBIN 29 PG (26.0-33.0); MEAN CORPUSCULAR HGB CONC 33 g/dl (31.0-36.0); MEAN CORPUSCULAR VOLUME 88 fL (80-96); MONOCYTES # (AUTO) 0.9 K/uL (0.1-1.30); MONOCYTES % (AUTO) 7.8 % (2.0-12.0); NEUTROPHILS # (AUTO) 8.6 K/uL (1.8-8.9); PLATELET COUNT (AUTO) 247 K/uL (150-450); RED BLOOD CELL COUNT(AUTO) 2.91 MIL/uL (4.5-6.0); RED CELL DISTRIBUTION WIDTH 16.3 % (11.5-15.0); WHITE BLOOD COUNT (AUTO) 11.1 K/uL (4.3-11.0)
[2023-04-21] MEDS: hydrALAZINE HCL 10 MG TABLET GT SCH (05:15)
[2023-04-21] MEDS: BLOOD SUGAR DIAGNOSTIC 1 EACH STRIP IN SCH ×4 (05:15→23:42)
[2023-04-21] MEDS: NEPRO 1,000 ML BOTTLE GT PRN (05:17)
[2023-04-21 05:19] LABS: ALBUMIN 2.3 g/dL (3.4-5.0); BILIRUBIN,TOTAL 0.3 mg/dL (0.2-1.0); CALCIUM, SERUM 8.5 mg/dL (8.5-10.1); CREATININE 2.7 mg/dL (0.6-1.3); POTASSIUM 3.3 mmol/L (3.5-5.1); TOTAL PROTEIN, SERUM 6.5 g/dL (6.4-8.2)
[2023-04-21] MEDS: PROSOURCE / PROSTAT (PYXIS) 30 ML UDC GT SCH ×3 (07:36→17:41)
[2023-04-21] MEDS: PANTOPRAZOLE 40 MG/PACK PACK GT SCH ×2 (08:44→21:10)
[2023-04-21] MEDS: METOPROLOL TARTRATE 25 MG TABLET GT SCH ×2 (08:44→21:12)
[2023-04-21] MEDS: FLUCONAZOLE (100 MG) 100 MG TABLET GT SCH (08:44)
[2023-04-21] MEDS: INSULIN GLARGINE, 100 UNIT/ML CARTRIDGE SQ SCH (09:02)
[2023-04-21] MEDS: hydrALAZINE HCL 10 MG TABLET PO SCH ×2 (17:40→21:12)
[2023-04-21] MEDS: TAMSULOSIN 0.4 MG CAP.SR.24H GT SCH (21:12)
[2023-04-21] MEDS: ATORVASTATIN 10 MG TABLET GT SCH (21:12)
[2023-04-21] MEDS: INSULIN REGULAR, HUMAN 100 UNIT/ML 3 ML VIAL SQ PRN (23:42)
[2023-04-22] VITALS (24 sets, daily range): BP systolic 109–140; BP diastolic 64–93; TEMP 97.9–99.7; O2SAT 96–100
[2023-04-22] MEDS: hydrALAZINE HCL 10 MG TABLET PO SCH ×3 (05:06→21:15)
[2023-04-22] MEDS: BLOOD SUGAR DIAGNOSTIC 1 EACH STRIP IN SCH ×4 (06:16→23:24)
[2023-04-22] MEDS: INSULIN REGULAR, HUMAN 100 UNIT/ML 3 ML VIAL SQ PRN ×2 (06:19→18:22)
[2023-04-22] MEDS: PANTOPRAZOLE 40 MG/PACK PACK GT SCH ×2 (08:13→21:14)
[2023-04-22] MEDS: FLUCONAZOLE (100 MG) 100 MG TABLET GT SCH (08:13)
[2023-04-22] MEDS: PROSOURCE / PROSTAT (PYXIS) 30 ML UDC GT SCH ×3 (08:13→18:21)
[2023-04-22] MEDS: METOPROLOL TARTRATE 25 MG TABLET GT SCH ×2 (08:14→21:15)
[2023-04-22] MEDS: INSULIN GLARGINE, 100 UNIT/ML CARTRIDGE SQ SCH (08:15)
[2023-04-22] MEDS: NEPRO 1,000 ML BOTTLE GT PRN (12:34)
[2023-04-22] MEDS ORDERED: NEPRO 1,000 ML BOTTLE GT PRN (13:30)
[2023-04-22] MEDS: TAMSULOSIN 0.4 MG CAP.SR.24H GT SCH (21:16)
[2023-04-22] MEDS: ATORVASTATIN 10 MG TABLET GT SCH (21:16)
[2023-04-23] VITALS: BP 130/76; TEMP 98.7; O2SAT 100
[2023-04-23 01:00] VITALS: BP 138/81; O2SAT 100
== END 2023-04-23 02:05 | disposition short-term general hospital (02) | DRG 720 ==
LOC: ER 08:09 → MED 14:05 → ICU 03-30 02:02
PROVIDERS: ADMIT Internal Medicine; ATTEND Internal Medicine
PROC: 5A1945Z Respiratory Ventilation, 24-96 Consecutive Hours (ICD-10-PCS; principal; 2023-03-30)
PROC: 0BH18EZ Insertion of Endotracheal Airway into Trachea, Via Natural or Artificial Opening Endoscopic (ICD-10-PCS; 2023-03-30)
PROC: 02HV33Z Insertion of Infusion Device into Superior Vena Cava, Percutaneous Approach (ICD-10-PCS; 2023-03-30)
PROC: B548ZZA Ultrasonography of Superior Vena Cava, Guidance (ICD-10-PCS; 2023-03-30)
PROC: 05H633Z Insertion of Infusion Device into Left Subclavian Vein, Percutaneous Approach (ICD-10-PCS; 2023-03-30)
PROC: B547ZZA Ultrasonography of Left Subclavian Vein, Guidance (ICD-10-PCS; 2023-03-30)
PROC: 5A1D70Z Performance of Urinary Filtration, Intermittent, Less than 6 Hours Per Day (ICD-10-PCS; 2023-03-30)
PROC: 0BC78ZZ Extirpation of Matter from Left Main Bronchus, Via Natural or Artificial Opening Endoscopic (ICD-10-PCS; 2023-03-31)
PROC: 0B9J8ZX Drainage of Left Lower Lung Lobe, Via Natural or Artificial Opening Endoscopic, Diagnostic (ICD-10-PCS; 2023-03-31)
PROC: 0B9G8ZX Drainage of Left Upper Lung Lobe, Via Natural or Artificial Opening Endoscopic, Diagnostic (ICD-10-PCS; 2023-03-31)
PROC: 5A1955Z Respiratory Ventilation, Greater than 96 Consecutive Hours (ICD-10-PCS; 2023-04-04)
PROC: 0BH17EZ Insertion of Endotracheal Airway into Trachea, Via Natural or Artificial Opening (ICD-10-PCS; 2023-04-04)
PROC: 5A12012 Performance of Cardiac Output, Single, Manual (ICD-10-PCS; 2023-04-04)
PROC: 5A1945Z Respiratory Ventilation, 24-96 Consecutive Hours (ICD-10-PCS; 2023-04-15)
PROC: 0BH17EZ Insertion of Endotracheal Airway into Trachea, Via Natural or Artificial Opening (ICD-10-PCS; 2023-04-15)
PROC: 5A1955Z Respiratory Ventilation, Greater than 96 Consecutive Hours (ICD-10-PCS; 2023-04-15)
PROC: 30233N1 Transfusion of Nonautologous Red Blood Cells into Peripheral Vein, Percutaneous Approach (ICD-10-PCS; 2023-04-16)
PROC: 4A023N7 Measurement of Cardiac Sampling and Pressure, Left Heart, Percutaneous Approach (ICD-10-PCS; 2023-04-18)
PROC: B211YZZ Fluoroscopy of Multiple Coronary Arteries using Other Contrast (ICD-10-PCS; 2023-04-18)
DX: A41.9 Sepsis, unspecified organism (principal); N17.0 Acute kidney failure with tubular necrosis; J96.01 Acute respiratory failure with hypoxia; K72.00 Acute and subacute hepatic failure without coma; J69.0 Pneumonitis due to inhalation of food and vomit; R65.21 Severe sepsis with septic shock; G93.41 Metabolic encephalopathy; E43 Unspecified severe protein-calorie malnutrition; B37.89 Other sites of candidiasis; I21.4 Non-ST elevation (NSTEMI) myocardial infarction; I50.23 Acute on chronic systolic (congestive) heart failure; E86.0 Dehydration; E87.29 Other acidosis; E87.21 Acute metabolic acidosis; A04.9 Bacterial intestinal infection, unspecified; E87.1 Hypo-osmolality and hyponatremia; E87.5 Hyperkalemia; N39.0 Urinary tract infection, site not specified; E78.5 Hyperlipidemia, unspecified; I21.A1 Myocardial infarction type 2; I25.10 Atherosclerotic heart disease of native coronary artery without angina pectoris; R13.10 Dysphagia, unspecified; R74.01 Elevation of levels of liver transaminase levels; H54.61 Unqualified visual loss, right eye, normal vision left eye; R31.9 Hematuria, unspecified; T17.990A Other foreign object in respiratory tract, part unspecified in causing asphyxiation, initial encounter; J98.19 Other pulmonary collapse; I42.8 Other cardiomyopathies; I13.0 Hypertensive heart and chronic kidney disease with heart failure and stage 1 through stage 4 chronic kidney disease, or unspecified chronic kidney disease; N18.9 Chronic kidney disease, unspecified; E11.22 Type 2 diabetes mellitus with diabetic chronic kidney disease; D63.1 Anemia in chronic kidney disease; Z68.1 Body mass index [BMI] 19.9 or less, adult; I46.9 Cardiac arrest, cause unspecified; J98.11 Atelectasis; I25.2 Old myocardial infarction; Z79.4 Long term (current) use of insulin; N40.1 Benign prostatic hyperplasia with lower urinary tract symptoms
CPT/HCPCS: 31720; 36415; 36600; 71045-TC; 71250-TC; 76770-TC; 80048-TC; 80053-TC; 80076-TC; 80202-TC; 81001; 82140-TC; 82272-TC; 82533; 82570-TC; 82803-TC; 82962-TC; 83690-TC; 83735-TC; 84100-TC; 84300-TC; 84439-TC; 84443-TC; 84478-TC; 84484-TC; 85025-TC; 85027-TC; 85610-TC; 85730-TC; 86850-TC; 87040-TC; 87081-TC; 87086-TC; 87177; 87209; 89055; 90935-TC; 92526; 92611-TC; 92950-TC; 93307-TC; 94002-TC; 94003-TC; 94799-TC; 97112-TC; 97116-TC; 97530-TC; A4216; A4217; A4223; A4624; A6403; C1887; C9113; G0378; G0500; J0132; J0171; J1170; J1450; J1644; J1815; J1940; J1956; J2250; J2370; J2405; J2543; J3370; J3480; J3490; J7030; J7050; J7060; J7070; P9016; P9047; Q9967